=== PATIENT | male | born 1955 | race Caucasian/White ===

== ENCOUNTER 2018-06-12 19:36 | Inpatient (IN) | payer MEDICARE, MEDICAID ==
[2018-06-12] MEDS ORDERED: NORMAL SALINE 1000 ML 1,000 ML IV ONE (19:43)
--- NOTE | 2018-06-12 19:43 | ER Document Report ---
ED General - General TRAVEL OUTSIDE OF THE [place] IN LAST 30 DAYS: No <PHILIPP FULLER - Last Filed: 06/13/18 04:17> <BENI BOOKER - Last Filed: 06/13/18 04:28> - General Stated Complaint: UNRESPONSIVE Time Seen by Provider: 06/12/18 19:36 Notes: 63-year-old male who presents to the emergency department today unresponsive. EMS states that the family had picked the patient up from his house because they were taking him to a pulmonology appointment tomorrow to have a "spot on his lung" looked at. EMS states that the patient was sitting at the table eating and became unresponsive. He has a remote history of drug usage according to EMS. Patient received 4 mg of Narcan with no change in mental status. Family has now arrived and describes an episode where the patient attempted to get up from the table with his head shaking and a jerking motion in his right arm. Family states that the patient was not listening to them or responding to them during this episode. Family states the patient does have a history of EtOH abuse. (PHILIPP FULLER) - Related Data Allergies/Adverse Reactions: Sulfa (Sulfonamide Antibiotics) Allergy (Verified 05/28/16 15:48) Past Medical History - General Information source: Relative, [facility] Records - Social History Smoking Status: Current Every Day Smoker Cigarette use (# per day): Yes Frequency of alcohol use: Heavy Lives with: Family Family History: Reviewed & Not Pertinent, CAD, Hypertension - Past Medical History Cardiac Medical History: Reports: Hx Coronary Artery Disease, Hx DVT, Hx Hypercholesterolemia, Hx Hypertension, Hx Pulmonary Embolism Pulmonary Medical History: Reports: Hx COPD Endocrine Medical History: Reports: Hx Diabetes Mellitus Type 2 Psychiatric Medical History: Reports: Hx Depression Past Surgical History: Reports: Hx Abdominal Surgery - hernia, Hx Appendectomy, Hx Tonsillectomy - Immunizations Hx Diphtheria, Pertussis, Tetanus Vaccination: Yes <PHILIPP FULLER - Last Filed: 06/13/18 04:17> Review of Systems - Review of Systems -: Yes ROS unobtainable due to patient's medical condition <PHILIPP FULLER - Last Filed: 06/13/18 04:17> Physical Exam <PHILIPP FULLER - Last Filed: 06/13/18 04:17> <BENI BOOKER - Last Filed: 06/13/18 04:28> - Vital signs Vitals: Resp Pulse Ox 14 99 06/12/18 19:39 06/12/18 19:39 - Notes Notes: PHYSICAL EXAM GENERAL: Decreased level of responsiveness. HEAD: Normocephalic, atraumatic. EYES: Pupils equal, round, and reactive to light. ENT: Oral mucosa moist, tongue midline. NECK: Full range of motion. Supple. Trachea midline. LUNGS: Clear to auscultation bilaterally, no wheezes, rales, or rhonchi. Snoring respirations, NPA intact and causing gagging. HEART: Regular rate and rhythm. No murmurs, gallops, or rubs. ABDOMEN: Soft, non-tender. Non-distended. Bowel sounds present in all 4 quadrants. No guarding, rigidity, or rebound. EXTREMITIES: Occasional spontaneous movements. Withdraws from ABG. NEUROLOGICAL: GCS E3, V2, M6 = 11. Squeezes hands on command. SKIN: Thick hypertrophic nails across bilateral feet. The medial aspect of the right great toe is necrotic. Toenails are peeling up on both feet. Both feet are warm. There is a callus in the left foot over the tip of the left great toe which is not necrotic. (PHILIPP FULLER) Course - Laboratory Result Diagrams: 06/12/18 19:00 06/12/18 19:00 <PHILIPP FULLER - Last Filed: 06/13/18 04:17> - Laboratory Result Diagrams: 06/12/18 19:00 06/12/18 19:00 <BENI BOOKER - Last Filed: 06/13/18 04:28> - Re-evaluation Re-evalutation: 06/12/18 23:23 +CBC unremarkable, venous blood gas shows slightly low PO2 at 76.5, CO2 is mildly elevated at 28.3, he is not acidotic, there are no findings that would explain his altered mental status, CMP shows moderately elevated glucose at 212 , no other electrolyte abnormalities that would explain his altered mental status is indeterminate at 0.062, proBNP normal at 89, urinalysis shows glucose but no ketones or signs of infection, no signs of severe dehydration, urine drug screen is negative, salicylates and acetaminophen are undetectable, alcohol is undetectable. Chest x-ray shows no acute process, CT scan of the head shows no acute process. More history was obtained from the family and the history includes the fact that he had some efforts to stand and then shaking of his head and then he slumped down onto the table. They also include that he has had episodes of urinary and fecal incontinence on multiple occasions when at home with his home health aide. I am quite suspicious that the patient actually had a seizure and is now postictal. He has been rechecked several times, he is slowly awakening more and more every time I see him. I just rechecked him and he makes efforts to sit up and when she can and asked to wake up and talk to me he says I am awake but then immediately falls back asleep. Patient will be observed for another hour, if he is then able to wake up and walk he will be discharged to home under the care of his family with Keppra as an antiepileptic otherwise we will discussed observation overnight with the hospitalist. Family is in agreement with this plan. 06/13/18 03:39 Patient still quite confused, unable to answer my questions, makes efforts to sit up in bed but cannot hold himself up, after much encouragement he is still not able to sit up in bed. Not able to give himself a drink. Cardiac enzymes are trending downward. Lactic acid is still elevated. No other signs of sepsis. Discussed patient with Dr. Delacruz, agrees to place patient on his service in observation status. Continue to observe for clearing of mentation. 06/13/18 04:27 I do not suspect alcohol withdrawal as he is not tachycardic and he is not hypertensive and his mental status is improving. (BENI BOOKER) - Vital Signs Vital signs: Temp Pulse Resp BP Pulse Ox 78 19 131/82 H 94 06/12/18 19:42 06/13/18 04:01 06/13/18 04:01 06/13/18 04:01 - Laboratory Laboratory results interpreted by me: 06/12/18 06/12/18 06/12/18 19:00 19:39 20:05 ABG pO2 76.5 L ABG HCO3 27.0 H ABG Total CO2 28.3 H BUN 25 H Glucose 212 H POC Glucose 220 H Lactic Acid ALT 17 L Creatine Kinase 37 L Urine Glucose (UA) Salicylates < 1.0 L Acetaminophen < 10 L 06/12/18 06/12/18 06/13/18 20:05 20:50 00:05 ABG pO2 ABG HCO3 ABG Total CO2 BUN Glucose POC Glucose Lactic Acid 2.4 H 2.6 H ALT Creatine Kinase Urine Glucose (UA) >=500 H Salicylates Acetaminophen - EKG Interpretation by Me Additional EKG results interpreted by me: 06/12/18 23:25 EKG shows sinus rhythm at a rate of 79, no ST segment elevations or depressions , T wave inversions isolated to lead III, normal axis, prolonged QT interval, rapid R wave progression per my interpretation. (BENI BOOKER) Critical Care Note - Critical Care Note Total time excluding time spent on procedures (mins): 45 <BENI BOOKER - Last Filed: 06/13/18 04:28> Discharge <PHILIPP FULLER - Last Filed: 06/13/18 04:17> - Discharge Admitting Provider: [facility] Unit Admitted: Telemetry <BENI BOOKER - Last Filed: 06/13/18 04:28> - Discharge Clinical Impression: Altered mental status Qualifiers: Altered mental status type: coma Coma depth: [place] coma 9-12 Coma timing: in the field (EMT or ambulance) Qualified Code(s): R40.2421 - Hu coma scale score 9-12, in the field [EMT or ambulance] Condition: Good Disposition: ADMITTED OBSERVATION Scribe Attestation: 06/13/18 04:28 I personally performed the services described in the documentation, reviewed and edited the documentation which was dictated to the scribe in my presence, and it accurately records my words and actions. (BENI BOOKER)
[2018-06-12 20:01] LABS: ABSOLUTE BASOPHILS # (AUTO) 0.1 10^3/uL (0.0-0.2); ABSOLUTE EOSINOPHILS # (AUTO) 0.3 10^3/uL (0.0-0.6); ABSOLUTE LYMPHOCYTES (AUTO) 2.1 10^3/uL (0.5-4.7); ABSOLUTE MONOCYTES (AUTO) 0.7 10^3/uL (0.1-1.4); ABSOLUTE NEUT (AUTO) 3.7 10^3/uL (1.7-8.2); BASOPHILS % (AUTO) 1.4 % (0-2); EOSINOPHILS % (AUTO) 4.3 % (0-6); HEMATOCRIT 44.9 % (37.9-51.0); HEMOGLOBIN 15.4 g/dL (13.5-17.0); LYMPHOCYTES % (AUTO) 30.5 % (13-45); MEAN CORPUSCULAR HEMOGLOBIN 31.2 pg (27.0-33.4); MEAN CORPUSCULAR HGB CONC 34.4 g/dL (32.0-36.0); MEAN CORPUSCULAR VOLUME 91 fl (80-97); MONOCYTES % (AUTO) 10.7 % (3-13); PLATELET COUNT 263 10^3/uL (150-450); RED BLOOD COUNT 4.96 10^6/uL (4.35-5.55); RED CELL DISTRIBUTION WIDTH 13.5 % (11.5-14.0); SEGMENTED NEUTROPHILS % (AUTO) 53.1 % (42-78); TOTAL CELLS COUNTED % (AUTO) 100 %
[2018-06-12 20:25] LABS: ARTERIAL BLOOD BASE EXCESS 2.1 mmol/L; ARTERIAL BLOOD O2 SATURATION 95.4 % (94-98); ARTERIAL BLOOD PCO2 43.1 mmHg (35-45); ARTERIAL BLOOD PH 7.42 (7.35-7.45); ARTERIAL BLOOD PO2 76.5 mmHg (80-100); ARTERIAL BLOOD TOTAL CO2 28.3 mmol/L (23-27)
[2018-06-12 20:27] LABS: ARTERIAL BLOOD FIO2 2L
[2018-06-12 20:41] LABS: APPEARANCE,URINE CLEAR; BILIRUBIN,URINE NEGATIVE (NEGATIVE); COLOR,URINE YELLOW; GLUCOSE, URINE >=500 mg/dL (NEGATIVE); KETONES,URINE NEGATIVE (NEGATIVE); LEUKOCYTE ESTERASE,URINE NEGATIVE (NEGATIVE); NITRITE,URINE NEGATIVE (NEGATIVE); PROTEIN,URINE NEGATIVE (NEGATIVE); URINE SPECIFIC GRAVITY 1.022; UROBILINOGEN,URINE NEGATIVE mg/dL (<2.0)
[2018-06-12 20:43] LABS: CREATINE KINASE MB 0.8 ng/mL (<4.55)
[2018-06-12 20:55] LABS: URINE AMPHETAMINES SCREEN NEGATIVE; URINE BARBITURATES SCREEN NEGATIVE; URINE BENZODIAZEPINES SCREEN NEGATIVE; URINE COCAINE SCREEN NEGATIVE; URINE MARIJUANA (THC) SCREEN NEGATIVE; URINE METHADONE SCREEN NEGATIVE; URINE PHENCYCLIDINE SCREEN NEGATIVE
--- NOTE | 2018-06-12 21:00 | RADIOLOGY REPORT (SQ) ---
EXAM DESCRIPTION: XR CHEST 1 VIEW COMPLETED DATE/TME: 06/12/2018 19:41 CLINICAL HISTORY: 63 years, Male, ams Findings: Heart is mildly enlarged. Aorta is within normal limits. No consolidation or pleural effusion. No pulmonary edema or pneumothorax. IMPRESSION: No acute disease.
[2018-06-12 21:07] LABS: ALANINE AMINOTRANSFERASE 17 U/L (21-72); ALBUMIN 3.8 g/dL (3.5-5.0); ALKALINE PHOSPHATASE 73 U/L (38-126); ANION GAP 13 (5-19); ASPARTATE AMINO TRANSFERASE 46 U/L (17-59); BILIRUBIN,DIRECT 0.3 mg/dL (0.0-0.4); BILIRUBIN,TOTAL 0.3 mg/dL (0.2-1.3); BLOOD UREA NITROGEN 25 mg/dL (7-20); CALCIUM 9.5 mg/dL (8.4-10.2); CARBON DIOXIDE 25 mmol/L (22-30); CHLORIDE 101 mmol/L (98-107); CREATINE KINASE 37 U/L (55-170); GLUCOSE 212 mg/dL (75-110); SODIUM 139.4 mmol/L (137-145)
[2018-06-12 21:10] LABS: TROPONIN I 0.062 ng/mL
[2018-06-12 21:12] LABS: ACETAMINOPHEN < 10 ug/mL (10-30); ALCOHOL < 10 mg/dL (NONE DETECTED); SALICYLATE < 1.0 mg/dL (2.0-20.0)
--- NOTE | 2018-06-12 23:05 | RADIOLOGY REPORT (SQ) ---
EXAM DESCRIPTION: CT HEAD WITHOUT IV CONTRAST COMPLETED DATE/TME: 06/12/2018 20:46 CLINICAL HISTORY: 63 years, Male, decreased LOC This exam was performed according to our departmental dose-optimization program which includes automated exposure control, adjustment of the mA and/or kVp according to patient size and/or use of iterative reconstruction technique where applicable. FINDINGS: No acute intracranial hemorrhage, mass effect or midline shift. No extra-axial fluid collections. Ventricles and subarachnoid spaces are mildly dilated consistent with cerebral atrophy. Mild patchy hypodense areas in periventricular white matter of both cerebral hemispheres consistent with chronic small vessel ischemic changes. Visualized paranasal sinuses demonstrates mild fluid and mucosal thickening in the sphenoid sinuses. Mastoid air cells are clear. The skull is intact. IMPRESSION: No acute intracranial hemorrhage.
[2018-06-13] MEDS ORDERED: MAGNESIUM HYDROXIDE SUSP 30 ML UDCUP PO PRN (04:08)
[2018-06-13] MEDS ORDERED: MAG HYDROX/AL HYDROX/SIMETH SUSP 30 ML UDCUP PO PRN (04:08)
[2018-06-13] MEDS ORDERED: ONDANSETRON HCL INJ/PF 4 MG/2 ML SDV IV PRN (04:08)
[2018-06-13] MEDS ORDERED: ONDANSETRON 4 MG TAB.RAPDIS PO PRN (04:08)
[2018-06-13] MEDS ORDERED: DEXTROSE 40% GEL 15 GM TUBE PO PRN ×4 (04:20→04:23)
[2018-06-13] MEDS ORDERED: GLUCAGON,HUMAN RECOMB 1 MG INJ IM PRN ×2 (04:20→04:23)
[2018-06-13] MEDS ORDERED: DEXTROSE 50%-WATER 25 GM/50 ML DISP.SYRIN IV PRN ×4 (04:20→04:23)
[2018-06-13] MEDS ORDERED: POTASSI CL 20 MEQ/1/2NS 1L 20 MEQ/1,000 ML RTUINJ IV PRN (04:22)
[2018-06-13] MEDS ORDERED: ACETAMINOPHEN 650 MG SUPP.RECT PR PRN (04:29)
--- NOTE | 2018-06-13 06:36 | PDOC H&P ---
History of Present Illness Admission Date/PCP: 06/13/18 03:55 Patient complains of: unresponsiveness History of Present Illness: RITU ALLEN is a 63 year old male who presented to the emergency room via EMS. His family members relate that they had picked the patient up at his home and brought him to their home to facilitate their ability to take him to a pulmonology appointment scheduled later today. However they found him slumped forward while sitting at the table where he had apparently been eating. His head was down on the table and was also noted to be shaking and his right arm was extended out over the table and it was jerking. The patient was not responsive to their attempts to arouse him or assist him and this created great concern for them for which they called the EMS. Since the time of his unusual behavior he has not been responsive though he can be aroused minimally he is unable to communicate other than for the most brief of questions as he returns to his somnolent stupor before a question can be reasonably posed. He does say no when asked if he has any pain however this is the extent of information that was able to be gleaned from the patient himself. The family states that he has been found by his homemaker sitting in his recliner having lost control of his bladder or bowels on occasions. Generally he is good about getting up and going to the bathroom and his homemaker found this to be somewhat puzzling but had also noted that he was sleeping very soundly when she would find him in such a condition and she would not be able to wake him to get him to clean himself up. The family indicates that the patient has no history of seizure disorder to the best of their knowledge. In the emergency room the patient was found to be arousable but stuporous on exam. His laboratory workup was essentially unremarkable with the exception of a mildly elevated lactic acid level and hyperglycemia in the 200s. His brain CT scan was unremarkable for any acute process. Because of these findings it was felt that the patient was most likely post ictal and he is being admitted to observation status for ongoing evaluation and initiation of anticonvulsant therapy. Past Medical History Past Medical History: Patient is unable to provide any past history however his family does provide some history and other parts of the history are obtained from prior records. Cardiac Medical History: Reports: Coronary Artery Disease, DVT, Hyperlipidema, Hypertension, Pulmonary Embolism Pulmonary Medical History: Reports: Chronic Obstructive Pulmonary Disease (COPD) Denies: Tuberculosis EENT Medical History: Reports: None Neurological Medical History: Denies: Hemorrhagic CVA, Ischemic CVA, Seizures Endocrine Medical History: Reports: Diabetes Mellitus Type 2 Denies: Diabetes Mellitus Type 1, Hyperthyroidism, Hypothyroidism Renal/ Medical History: Denies: Chronic Kidney Disease, Nephrolithiasis Malignancy Medical History: Reports: None GI Medical History: Denies: Cirrhosis, Hepatitis Musculoskeltal Medical History: Denies: Arthritis, Gout Skin Medical History: Denies: Eczema, Psoriasis Psychiatric Medical History: Reports: Depression Denies: Alcohol Dependency, Substance Abuse Traumatic Medical History: Reports: None Hematology: Denies: Anemia, Bleeding Tendencies Infectious Medical History: Reports: None Past Surgical History Past Surgical History: Reports: Appendectomy, Tonsillectomy Social History Information Source: Relative Lives with: Alone Smoking Status: Current Every Day Smoker Frequency of Alcohol Use: None Hx Recreational Drug Use: No Drugs: None Hx Prescription Drug Abuse: No - Advance Directive Resuscitation Status: Full Code Surrogate healthcare decision maker:: Conor Allen Family History Family History: CAD, Hypertension Parental Family History Reviewed: Yes Children Family History Reviewed: No Sibling(s) Family History Reviewed.: Yes Medication/Allergy Home Medications: Albuterol Sulfate [Ventolin Hfa] 2 puff IH PRN PRN 05/29/16 Carbamazepine 200 mg PO DAILY 05/29/16 Gabapentin 100 mg PO BID 05/29/16 Isosorbide Mononitrate [Isosorbide Mononitrate ER] 30 mg PO DAILY 05/29/16 Lisinopril 1 tab PO DAILY 05/29/16 Omeprazole 20 mg PO DAILY 05/29/16 Tamsulosin HCl [Flomax 0.4 mg Cap.sr] 0.4 mg PO DAILY 05/29/16 Warfarin Sodium 5 mg PO DAILY 05/29/16 Alprazolam [Xanax 0.5 mg Tablet] 0.5 mg PO BIDP PRN #10 tablet 05/30/16 Amlodipine Besylate 10 mg PO DAILY #30 tablet 05/30/16 Blood-Glucose Meter [Blood Glucose Meter] 1 unit MC DAILY PRN #1 unit 05/30/16 Enoxaparin Sodium [Lovenox Inj 100 mg/1 ml Disp.syrin] 95 mg SUBCUT Q12 #10 disp.syrin 05/30/16 Lisinopril [Prinivil 10 mg Tablet] 10 mg PO DAILY #30 tablet 05/30/16 Metformin HCl 500 mg PO DAILY #30 tablet 05/30/16 Metoprolol Succinate [Toprol XL 100 mg Tablet] 100 mg PO DAILY #30 tab.sr.24h Oxycodone HCl/Acetaminophen [Oxycodon-Acetaminophen 7.5-325] 1 each PO Q6 PRN # 20 tablet 05/30/16 Pioglitazone HCl 30 mg PO DAILY #30 tablet 05/30/16 Promethazine HCl 25 mg PO PRN PRN #10 tablet 05/30/16 Simvastatin 20 mg PO DAILY #30 tablet 05/30/16 Allergies/Adverse Reactions: Sulfa (Sulfonamide Antibiotics) Allergy (Verified 05/28/16 15:48) Review of Systems ROS unobtainable: Due to mental status - Patient is stuporous and somnolent and unable to respond to questions with meaningful input. Physical Exam Vital Signs: Temp Pulse Resp BP Pulse Ox 78 19 121/79 95 06/12/18 19:42 06/13/18 03:01 06/13/18 03:01 06/13/18 03:01 General appearance: PRESENT: no acute distress, other - Somnolent but arousable , stuporous when aroused. Head exam: PRESENT: atraumatic, normocephalic Eye exam: PRESENT: conjunctiva pink. ABSENT: scleral icterus Ear exam: PRESENT: normal external ear exam. ABSENT: bleeding, drainage Mouth exam: PRESENT: dry mucosa, neck supple Neck exam: ABSENT: JVD, thyromegaly, tracheal deviation Respiratory exam: PRESENT: clear to auscultation rubin, symmetrical, unlabored Cardiovascular exam: PRESENT: RRR. ABSENT: clicks, gallop, rubs Pulses: PRESENT: normal radial pulses, normal dorsalis pedis pul Vascular exam: PRESENT: normal capillary refill. ABSENT: pallor GI/Abdominal exam: PRESENT: normal bowel sounds, soft Rectal exam: PRESENT: deferred Extremities exam: ABSENT: joint swelling, pedal edema Musculoskeletal exam: ABSENT: deformity, dislocation Neurological exam: PRESENT: altered - Somnolent and stuporous when aroused., CN II-XII grossly intact Psychiatric exam: PRESENT: other - Unable to assess due to patient's somnolence and stupor Skin exam: PRESENT: dry, intact, warm. ABSENT: jaundice, rash, urticaria Results Impressions: Chest X-Ray 06/12/18 19:41 IMPRESSION: No acute disease. Head CT 06/12/18 20:46 IMPRESSION: No acute intracranial hemorrhage. Assessment & Plan - Diagnosis (1) Altered mental status Qualifiers: Altered mental status type: coma Coma depth: [place] coma 9-12 Coma timing: in the field (EMT or ambulance) Qualified Code(s): R40.2421 - [place] coma scale score 9-12, in the field [EMT or ambulance] Is this a current diagnosis for this admission?: Yes Plan: Patient will be admitted to observation status for ongoing evaluation of his altered mental status with somnolence stupor. This is most likely post ictal in nature and is expected to resolve over the next 6-12 hours. Supportive care will be provided in the meantime. (2) Hypertension Qualifiers: Hypertension type: essential hypertension Qualified Code(s): I10 - Essential (primary) hypertension Is this a current diagnosis for this admission?: Yes Plan: Patient will be continued on his current antihypertensive regimen when he is awake and alert and able to resume taking oral medications. (3) Coronary artery disease Qualifiers: Coronary Disease-Associated Artery/Lesion type: unspecified vessel or lesion type [place] vs. transplanted heart: [place] heart Associated angina: angina presence unspecified Qualified Code(s): I25.10 - Atherosclerotic heart disease of [place] coronary artery without angina pectoris Is this a current diagnosis for this admission?: Yes Plan: Patient will be continued on his cardiac regimen as soon as he is awake and alert enough to tolerate oral medications. (4) Szf-llukisu-lukafiszp diabetes mellitus without complications Qualifiers: Diabetes mellitus or first assist registered nurse insulin use: without or first assist registered nurse use Qualified Code(s): E11.9 - Type 2 diabetes mellitus without complications Is this a current diagnosis for this admission?: Yes Plan: Patient will be returned to his usual diabetic therapeutic regiment as soon as he is awake and alert. (5) History of pulmonary embolism Is this a current diagnosis for this admission?: Yes Plan: Patient will be continued on his twice daily dosing of Lovenox at 1 mg/kg per dose. - Time Time Spent: 30 to 50 Minutes Critical Time spent with patient: Less than 15 minutes Medications reviewed and adjusted accordingly: Yes - Inpatient Certification Based on my medical assessment, after consideration of the patient's comorbidities, presenting symptoms, or acuity I expect that the services needed warrant INPATIENT care.: No I certify that my determination is in accordance with my understanding of Medicare's requirements for reasonable and necessary INPATIENT services [42 CFR 412.3e].: No
[2018-06-13 07:04] LABS: ANION GAP 8 (5-19); BLOOD UREA NITROGEN 23 mg/dL (7-20); CALCIUM 8.9 mg/dL (8.4-10.2); CARBON DIOXIDE 25 mmol/L (22-30); CHLORIDE 107 mmol/L (98-107); CREATINE KINASE 28 U/L (55-170); GLUCOSE 206 mg/dL (75-110); POTASSIUM 4.3 mmol/L (3.6-5.0); SODIUM 140.1 mmol/L (137-145)
[2018-06-13 07:12] LABS: CREATINE KINASE MB 0.53 ng/mL (<4.55); TROPONIN I 0.056 ng/mL
[2018-06-13 07:36] LABS: THYROID STIMULATING HORMONE 0.68 uIU/mL (0.47-4.68)
[2018-06-13 07:38] LABS: FREE T3 2.73 pg/mL (2.77-5.27); FREE T4 (FREE THYROXINE) 0.8 ng/dL (0.78-2.19)
[2018-06-13] MEDS: BUDESONIDE NEB 0.5 MG/2 ML AMPUL NEB SCH ×2 (09:05→19:53)
--- NOTE | 2018-06-13 10:00 | EKG REPORT ---
SEVERITY:- ABNORMAL ECG - SINUS RHYTHM INFERIOR INFARCT, OLD BORDERLINE PROLONGED QT INTERVAL : Confirmed by: Josephine Mariscal MD 13-Jun-2018 09:59:47
[2018-06-13] MEDS: ENOXAPARIN SODIUM INJ 100 MG/1 ML DISP.SYRIN SUBCUT SCH ×2 (12:34→22:02)
[2018-06-13] MEDS: DOCUSATE SODIUM 100 MG CAPSULE PO SCH ×2 (12:35→17:14)
[2018-06-13] MEDS: TAMSULOSIN HCL 0.4 MG CAP.SR.24H PO SCH (12:35)
[2018-06-13] MEDS: METOPROLOL SUCCINATE 50 MG TAB.SR.24H PO SCH (12:35)
[2018-06-13] MEDS: AMLODIPINE BESYLATE 10 MG TABLET PO SCH (12:35)
[2018-06-13] MEDS: FAMOTIDINE 20 MG TABLET PO SCH ×2 (12:35→22:03)
[2018-06-13] MEDS: ISOSORBIDE MONONITRATE 30 MG TAB.ER.24H PO SCH (12:36)
[2018-06-13] MEDS: LISINOPRIL 10 MG TABLET PO SCH (12:36)
[2018-06-13] MEDS: 1/2 NORMAL SALINE 1,000 ML IV PRN (13:04)
[2018-06-13] MEDS: LEVETIRACETAM 500 MG TABLET PO SCH ×2 (13:05→22:03)
[2018-06-13] MEDS: INSULIN LISPRO 100 UNIT/ML 3 ML VIAL SUBCUT PRN ×2 (13:33→18:33)
[2018-06-13 16:46] LABS: CREATINE KINASE MB 0.5 ng/mL (<4.55); TROPONIN I 0.057 ng/mL
[2018-06-13] MEDS: ALBUTEROL SULFATE 0.083% NEB 2.5 MG/3 ML AMPUL NEB PRN (19:56)
[2018-06-13] MEDS: SIMVASTATIN 10 MG TABLET PO SCH (22:03)
[2018-06-13 22:19] LABS: CREATINE KINASE MB 0.32 ng/mL (<4.55); TROPONIN I 0.055 ng/mL
[2018-06-14] MEDS: 1/2 NORMAL SALINE 1,000 ML IV PRN ×2 (00:14→08:18)
[2018-06-14 05:29] LABS: ABSOLUTE BASOPHILS # (AUTO) 0.1 10^3/uL (0.0-0.2); ABSOLUTE EOSINOPHILS # (AUTO) 0.3 10^3/uL (0.0-0.6); ABSOLUTE LYMPHOCYTES (AUTO) 2.2 10^3/uL (0.5-4.7); ABSOLUTE MONOCYTES (AUTO) 0.6 10^3/uL (0.1-1.4); ABSOLUTE NEUT (AUTO) 4.8 10^3/uL (1.7-8.2); BASOPHILS % (AUTO) 0.8 % (0-2); EOSINOPHILS % (AUTO) 3.4 % (0-6); HEMOGLOBIN 14.8 g/dL (13.5-17.0); LYMPHOCYTES % (AUTO) 27.8 % (13-45); MEAN CORPUSCULAR HEMOGLOBIN 31.4 pg (27.0-33.4); MEAN CORPUSCULAR HGB CONC 34.4 g/dL (32.0-36.0); MEAN CORPUSCULAR VOLUME 91 fl (80-97); MONOCYTES % (AUTO) 8.1 % (3-13); PLATELET COUNT 217 10^3/uL (150-450); RED BLOOD COUNT 4.72 10^6/uL (4.35-5.55); RED CELL DISTRIBUTION WIDTH 13.5 % (11.5-14.0); SEGMENTED NEUTROPHILS % (AUTO) 59.9 % (42-78); TOTAL CELLS COUNTED % (AUTO) 100 %
[2018-06-14] MEDS: BUDESONIDE NEB 0.5 MG/2 ML AMPUL NEB SCH ×2 (07:55→21:10)
[2018-06-14] MEDS: ALBUTEROL SULFATE 0.083% NEB 2.5 MG/3 ML AMPUL NEB PRN ×2 (07:55→21:10)
[2018-06-14] MEDS: LISINOPRIL 10 MG TABLET PO SCH (10:54)
[2018-06-14] MEDS: FAMOTIDINE 20 MG TABLET PO SCH ×2 (10:59→21:57)
[2018-06-14] MEDS: METOPROLOL SUCCINATE 50 MG TAB.SR.24H PO SCH (10:59)
[2018-06-14] MEDS: ISOSORBIDE MONONITRATE 30 MG TAB.ER.24H PO SCH (10:59)
[2018-06-14] MEDS: TAMSULOSIN HCL 0.4 MG CAP.SR.24H PO SCH (10:59)
[2018-06-14] MEDS: DOCUSATE SODIUM 100 MG CAPSULE PO SCH ×2 (10:59→18:10)
[2018-06-14] MEDS: AMLODIPINE BESYLATE 10 MG TABLET PO SCH (10:59)
[2018-06-14] MEDS: ENOXAPARIN SODIUM INJ 100 MG/1 ML DISP.SYRIN SUBCUT SCH (11:00)
[2018-06-14] MEDS: LEVETIRACETAM 500 MG TABLET PO SCH ×2 (11:00→21:57)
[2018-06-14] MEDS: ACETAMINOPHEN 325 MG TABLET PO PRN ×2 (11:01→18:14)
[2018-06-14] MEDS ORDERED: ALBUTEROL SULFATE HFA (90 MCG/PUFF) 200 PUFF/8.5 GM MDI IH PRN (11:26)
[2018-06-14] MEDS ORDERED: FOLIC ACID INJ 5 MG/1 ML 10 ML VIAL IV SCH (11:45)
--- NOTE | 2018-06-14 12:04 | PDOC PROGRESS REPORT ---
Subjective Progress Note for:: 06/14/18 Subjective:: Patient was seen and examined today. This awake but confused and confabulates. He is disoriented. RN tells me that family reported significant alcohol abuse. He has not had seizures so far in the hospital. Reason For Visit: DECREASED RESPONSIVENESS, POSSIBLE POSTICTAL Physical Exam Vital Signs: Temp Pulse Resp BP Pulse Ox 97.6 F 60 16 112/71 97 06/14/18 09:04 06/14/18 09:04 06/14/18 09:04 06/14/18 09:04 06/14/18 09:04 Intake & Output 06/13/18 06/14/18 06/15/18 06:59 06:59 06:59 Intake Total 2180 Output Total 1450 Balance 730 Weight 210 lb 15.718 oz General appearance: PRESENT: no acute distress Head exam: PRESENT: atraumatic, normocephalic Eye exam: ABSENT: conjunctival injection Mouth exam: PRESENT: moist, neck supple Neck exam: ABSENT: meningismus, tenderness, tracheostomy Respiratory exam: PRESENT: clear to auscultation rubin. ABSENT: accessory muscle use Cardiovascular exam: PRESENT: RRR. ABSENT: diastolic murmur Pulses: PRESENT: normal carotid pulses GI/Abdominal exam: PRESENT: normal bowel sounds, soft. ABSENT: ascites Rectal exam: PRESENT: deferred Neurological exam: PRESENT: awake. ABSENT: oriented to person, oriented to place Psychiatric exam: PRESENT: anxious Results Laboratory Results: 06/14/18 04:24 06/13/18 06:33 06/14/18 06/14/18 04:24 04:24 WBC 8.0 RBC 4.72 Hgb 14.8 Hct 43.0 MCV 91 MCH 31.4 MCHC 34.4 RDW 13.5 Plt Count 217 Seg Neutrophils % 59.9 Lymphocytes % 27.8 Monocytes % 8.1 Eosinophils % 3.4 Basophils % 0.8 Absolute Neutrophils 4.8 Absolute Lymphocytes 2.2 Absolute Monocytes 0.6 Absolute Eosinophils 0.3 Absolute Basophils 0.1 Magnesium 1.6 06/13/18 06/13/18 06/13/18 06:33 06:33 15:28 Creatine Kinase 28 L 27 L CK-MB (CK-2) 0.53 Troponin I 0.056 NT-Pro-B Natriuret Pep 80 06/13/18 06/13/18 06/13/18 15:28 21:30 21:30 Creatine Kinase 21 L CK-MB (CK-2) 0.50 0.32 Troponin I 0.057 0.055 NT-Pro-B Natriuret Pep Impressions: Chest X-Ray 06/12/18 19:41 IMPRESSION: No acute disease. Head CT 06/12/18 20:46 IMPRESSION: No acute intracranial hemorrhage. Assessment & Plan - Diagnosis (1) Altered mental status Qualifiers: Altered mental status type: coma Coma depth: [place] coma 9-12 Coma timing: in the field (EMT or ambulance) Qualified Code(s): R40.2421 - [place] coma scale score 9-12, in the field [EMT or ambulance] Is this a current diagnosis for this admission?: Yes Plan: Patient thought to be post ictal. He is started on Keppra per admitting physician. CT scan unremarkable. Will get an MRI of the brain. Family reports to RN significant history of alcohol abuse. Will start empiric thiamine supplements. Patient may need lumbar puncture. (2) History of pulmonary embolism Is this a current diagnosis for this admission?: Yes Plan: He is not on any anticoagulants for 2 years per family and verified by his pharmacy per RN. (3) Hypertension Qualifiers: Hypertension type: essential hypertension Qualified Code(s): I10 - Essential (primary) hypertension Is this a current diagnosis for this admission?: Yes Plan: Continue his home medications and monitor blood pressure. (4) Kyf-ayzlyuv-sdvdzelch diabetes mellitus without complications Qualifiers: Diabetes mellitus nursing home insulin use: without nursing home use Qualified Code(s): E11.9 - Type 2 diabetes mellitus without complications Is this a current diagnosis for this admission?: Yes Plan: Continue his home medications and monitor glucose levels. (5) Obesity (BMI 30.0-34.9) Is this a current diagnosis for this admission?: Yes
[2018-06-14] MEDS ORDERED: THIAMINE HCL 500 MG in NORMAL SALINE 250 ML IV SCH ×2 (13:00→14:00)
[2018-06-14] MEDS: INSULIN LISPRO 100 UNIT/ML 3 ML VIAL SUBCUT PRN ×2 (13:07→18:57)
[2018-06-14] MEDS: FOLIC ACID 1 MG in NORMAL SALINE 50 ML IV SCH (13:07)
[2018-06-14] MEDS: THIAMINE HCL 500 MG in NORMAL SALINE 250 ML IV SCH ×2 (14:33→21:57)
--- NOTE | 2018-06-14 16:30 | RADIOLOGY REPORT (SQ) ---
EXAM DESCRIPTION: MRI HEAD COMBO COMPLETED DATE/TIME: 06/14/2018 4:13 pm REASON FOR STUDY: encephalopathy R41.82 ALTERED MENTAL STATUS, UNSPECIFIED E08.65 DIABETES DUE TO UNDERLYING CONDITION W HYPERGLYCEMIA COMPARISON: CT 06/12/2018 TECHNIQUE: Multiplanar imaging includes noncontrasted T1, T2, FLAIR, Diffusion with ADC map and post gadolinium contrast T1 sequences. Images stored on PACS. CONTRAST TYPE AND DOSE: mL RENAL FUNCTION: GFR > 60. LIMITATIONS: None. FINDINGS: ANATOMY: No anomalies. Normal vascular flow voids. Pituitary fossa normal. CSF SPACES: Mild atrophy -induced prominence of CSF spaces and ventricles. CEREBRUM: High-signal intensity lesions scattered throughout the white matter on FLAIR imaging with d istribution suggesting chronic micro-vascular ischemic change. No evidence of hemorrhage, mass, extra axial fluid collection or acute ischemic change. No enhancing lesions. POSTERIOR FOSSA: Small infarcts in the cerebellar hemispheres. Evidence of small vessel disease in t he upper brain stem. IAC's unremarkable. Mild right mastoid fluid. ORBITS: No masses. Globes normal. PARANASAL SINUSES: Mucosal thickening in the left maxillary sinus. Fairly extensive scratch at exten sive mucosal thickening throughout the sphenoid sinus. DIFFUSION: Normal. No evidence of recent infarct. OTHER: No other significant finding. IMPRESSION: 1. Chronic atrophy, small vessel disease as above. 2. Fairly extensive paranasal sinus disease. This looks relatively chronic. 3. No recent CVA. No acute intracranial abnormality. EVIDENCE OF ACUTE STROKE: NO. TECHNICAL DOCUMENTATION: JOB ID: [id number] [employer]- All Rights Reserved Reading location - IP/workstation name: [email or web address]
[2018-06-14] MEDS: METFORMIN HCL 500 MG TABLET PO SCH (16:48)
[2018-06-14] MEDS: GLIPIZIDE 5 MG TABLET PO SCH (18:11)
[2018-06-14] MEDS: SIMVASTATIN 10 MG TABLET PO SCH (21:57)
[2018-06-15] MEDS: 1/2 NORMAL SALINE 1,000 ML IV PRN ×3 (00:47→22:36)
[2018-06-15 05:15] LABS: HEMOGLOBIN 13.5 g/dL (13.5-17.0); MEAN CORPUSCULAR HEMOGLOBIN 30.7 pg (27.0-33.4); MEAN CORPUSCULAR HGB CONC 33.8 g/dL (32.0-36.0); MEAN CORPUSCULAR VOLUME 91 fl (80-97); PLATELET COUNT 177 10^3/uL (150-450); RED CELL DISTRIBUTION WIDTH 13.8 % (11.5-14.0); WHITE BLOOD COUNT 7.4 10^3/uL (4.0-10.5)
[2018-06-15] MEDS: THIAMINE HCL 500 MG in NORMAL SALINE 250 ML IV SCH ×3 (05:39→21:12)
[2018-06-15] MEDS: METFORMIN HCL 500 MG TABLET PO SCH ×2 (07:58→16:08)
[2018-06-15] MEDS: BUDESONIDE NEB 0.5 MG/2 ML AMPUL NEB SCH ×2 (08:16→19:20)
[2018-06-15] MEDS: ALBUTEROL SULFATE 0.083% NEB 2.5 MG/3 ML AMPUL NEB PRN ×2 (08:16→19:20)
[2018-06-15 09:43] LABS: ANION GAP 6 (5-19); BLOOD UREA NITROGEN 18 mg/dL (7-20); CALCIUM 8.9 mg/dL (8.4-10.2); CARBON DIOXIDE 22 mmol/L (22-30); CHLORIDE 110 mmol/L (98-107); GLUCOSE 148 mg/dL (75-110); PHOSPHORUS 4.2 mg/dL (2.5-4.5); POTASSIUM 4.3 mmol/L (3.6-5.0); SODIUM 138.1 mmol/L (137-145)
[2018-06-15] MEDS ORDERED: (PENDING PHARMACY ID) (Umeclidinium Brm/Vilanterol Tr [Anoro Ellipta 62.5-25 Mcg Inh] 1 PU IH SCH (10:00)
[2018-06-15] MEDS ORDERED: AMLODIPINE BESYLATE 5 MG TABLET PO SCH (10:00)
[2018-06-15] MEDS: DOCUSATE SODIUM 100 MG CAPSULE PO SCH ×2 (10:04→17:15)
[2018-06-15] MEDS: ASPIRIN 81 MG TABLET, CHEWABLE PO SCH (10:08)
[2018-06-15] MEDS: METOPROLOL SUCCINATE 50 MG TAB.SR.24H PO SCH (10:08)
[2018-06-15] MEDS: TAMSULOSIN HCL 0.4 MG CAP.SR.24H PO SCH (10:08)
[2018-06-15] MEDS: AMLODIPINE BESYLATE 10 MG TABLET PO SCH (10:09)
[2018-06-15] MEDS: GLIPIZIDE 5 MG TABLET PO SCH ×2 (10:09→17:57)
[2018-06-15] MEDS: FAMOTIDINE 20 MG TABLET PO SCH ×2 (10:09→21:12)
[2018-06-15] MEDS: LEVETIRACETAM 500 MG TABLET PO SCH ×2 (10:09→21:12)
[2018-06-15] MEDS: ISOSORBIDE MONONITRATE 30 MG TAB.ER.24H PO SCH (10:10)
[2018-06-15] MEDS: FOLIC ACID 1 MG in NORMAL SALINE 50 ML IV SCH (10:10)
[2018-06-15] MEDS: ACETAMINOPHEN 325 MG TABLET PO PRN ×2 (10:18→17:57)
--- NOTE | 2018-06-15 10:22 | PDOC PROGRESS REPORT ---
Subjective Progress Note for:: 06/15/18 Subjective:: Patient was seen and examined today. Patient is awake and alert. He is looking much better today. He he was disoriented to place, time and person could recall after I redirected him. He has not had seizures so far in the hospital. Reason For Visit: DECREASED RESPONSIVENESS, POSSIBLE POSTICTAL Physical Exam Vital Signs: Temp Pulse Resp BP Pulse Ox 97.7 F 62 16 140/85 H 98 06/15/18 08:11 06/15/18 08:11 06/15/18 08:11 06/15/18 08:11 06/15/18 08:11 Intake & Output 06/14/18 06/15/18 06/16/18 06:59 06:59 06:59 Intake Total 2180 4694.2 Output Total 1450 2400 Balance 730 2294.2 Weight 210 lb 15.718 oz 215 lb 13.321 oz Exam: General appearance: no acute distress Head exam: atraumatic, normocephalic Eye exam: no conjunctival injection Mouth exam: moist, neck supple Neck exam: no meningismus, tenderness, tracheostomy Respiratory exam: clear to auscultation rubin. no accessory muscle use Cardiovascular exam: RRR. no diastolic murmur Pulses: normal carotid pulses GI/Abdominal exam: normal bowel sounds, soft. no ascites Rectal exam: deferred Neurological exam: awake. oriented to person, oriented to place after re- orientation Psychiatric exam: not anxious Results Laboratory Results: 06/15/18 04:30 06/15/18 08:50 06/15/18 06/15/18 04:30 08:50 WBC 7.4 RBC 4.40 Hgb 13.5 Hct 40.0 MCV 91 MCH 30.7 MCHC 33.8 RDW 13.8 Plt Count 177 Sodium 138.1 Potassium 4.3 Chloride 110 H Carbon Dioxide 22 Anion Gap 6 BUN 18 Creatinine 0.74 Est GFR ( Amer) > 60 Est GFR (Non-Af Amer) > 60 Glucose 148 H Calcium 8.9 Phosphorus 4.2 Magnesium 1.4 L 06/13/18 06/13/18 06/13/18 06:33 06:33 15:28 Creatine Kinase 28 L 27 L CK-MB (CK-2) 0.53 Troponin I 0.056 NT-Pro-B Natriuret Pep 80 06/13/18 06/13/18 06/13/18 15:28 21:30 21:30 Creatine Kinase 21 L CK-MB (CK-2) 0.50 0.32 Troponin I 0.057 0.055 NT-Pro-B Natriuret Pep Impressions: Chest X-Ray 06/12/18 19:41 IMPRESSION: No acute disease. Head CT 06/12/18 20:46 IMPRESSION: No acute intracranial hemorrhage. Head MRI 06/14/18 00:00 IMPRESSION: 1. Chronic atrophy, small vessel disease as above. 2. Fairly extensive paranasal sinus disease. This looks relatively chronic. 3. No recent CVA. No acute intracranial abnormality. EVIDENCE OF ACUTE STROKE: NO. Assessment & Plan - Diagnosis (1) Altered mental status Qualifiers: Altered mental status type: coma Coma depth: [place] coma 9-12 Coma timing: in the field (EMT or ambulance) Qualified Code(s): R40.2421 - [place] coma scale score 9-12, in the field [EMT or ambulance] Is this a current diagnosis for this admission?: Yes Plan: Patient thought to be post ictal. He is started on Keppra per admitting physician. CT scan unremarkable. Chronic ischemic changes on MRI of the brain but no acute issues. Family reports to RN significant history of alcohol abuse. We started empiric thiamine supplements. He is improving. Patient may need lumbar puncture. (2) History of pulmonary embolism Is this a current diagnosis for this admission?: Yes Plan: He is not on any anticoagulants for 2 years per family and verified by his pharmacy per RN. (3) Hypertension Qualifiers: Hypertension type: essential hypertension Qualified Code(s): I10 - Essential (primary) hypertension Is this a current diagnosis for this admission?: Yes Plan: Continue his home medications and monitor blood pressure. (4) Ymf-yhbjnnc-wlpkwhmdw diabetes mellitus without complications Qualifiers: Diabetes mellitus long term care phlebotomist insulin use: without long term care phlebotomist use Qualified Code(s): E11.9 - Type 2 diabetes mellitus without complications Is this a current diagnosis for this admission?: Yes Plan: Continue his home medications and monitor glucose levels. His A1c is 9.4 (5) Obesity (BMI 30.0-34.9) Is this a current diagnosis for this admission?: Yes - Plan Summary Plan Summary: Ambulate with physical therapy and occupational therapy. Continue aggressive thiamine supplements for the next 2 days minimum.
[2018-06-15] MEDS: INSULIN LISPRO 100 UNIT/ML 3 ML VIAL SUBCUT PRN ×2 (11:54→18:00)
[2018-06-15] MEDS: SIMVASTATIN 10 MG TABLET PO SCH (21:12)
[2018-06-15] MEDS: KETOROLAC TROMETHAMINE INJ/PF 30 MG/1 ML SDV IV PRN (21:12)
[2018-06-16] MEDS: THIAMINE HCL 500 MG in NORMAL SALINE 250 ML IV SCH ×3 (05:13→23:48)
[2018-06-16] MEDS: BUDESONIDE NEB 0.5 MG/2 ML AMPUL NEB SCH ×2 (07:34→20:15)
[2018-06-16] MEDS: ALBUTEROL SULFATE 0.083% NEB 2.5 MG/3 ML AMPUL NEB PRN (07:34)
[2018-06-16] MEDS: METFORMIN HCL 500 MG TABLET PO SCH ×2 (08:23→18:12)
[2018-06-16] MEDS: ASPIRIN 81 MG TABLET, CHEWABLE PO SCH (09:16)
[2018-06-16] MEDS: AMLODIPINE BESYLATE 10 MG TABLET PO SCH (09:16)
[2018-06-16] MEDS: TAMSULOSIN HCL 0.4 MG CAP.SR.24H PO SCH (09:16)
[2018-06-16] MEDS: METOPROLOL SUCCINATE 50 MG TAB.SR.24H PO SCH (09:17)
[2018-06-16] MEDS: LEVETIRACETAM 500 MG TABLET PO SCH ×2 (09:17→23:39)
[2018-06-16] MEDS: ISOSORBIDE MONONITRATE 30 MG TAB.ER.24H PO SCH (09:17)
[2018-06-16] MEDS: GLIPIZIDE 5 MG TABLET PO SCH ×2 (09:17→18:14)
[2018-06-16] MEDS: DOCUSATE SODIUM 100 MG CAPSULE PO SCH ×2 (09:17→17:52)
[2018-06-16] MEDS: FOLIC ACID 1 MG in NORMAL SALINE 50 ML IV SCH (09:20)
[2018-06-16] MEDS: ACETAMINOPHEN 325 MG TABLET PO PRN (09:20)
[2018-06-16] MEDS: FAMOTIDINE 20 MG TABLET PO SCH ×2 (09:24→23:39)
--- NOTE | 2018-06-16 09:37 | EEG PRO FEE REPORT ---
EEG INTERPRETATION PATIENT NAME: RITU ALLEN ROOM#: [id number] ORDER#: [id number] DATE OF STUDY: 06/13/2018 : 1955 REFERRING MD: MARCIA GUERRERO M.D. MEDICATIONS: Colace, Lovenox, Pepcid, GlucaGen, insulin, Imdur, Keppra, Lisinopril, Toprol, Zofran, Simvastatin, Flomax, Tylenol, Maalox, Albuterol, Norvasc, Pulmicort History This is a 63 year old right handed man with a history of cardiac stents, hypertension, hypercholesterolemia, COPD, pulmonary embolism, type II Diabetes, anxiety, depression, chronic ear infection, hernia who has been sleeping and snoring with minimal response. This EEG was requested for altered mental status. EEG Interpretation This EEG was recorded in the mostly sleep state. There was reactivity to passive eye opening and closing. The background consisted of mostly theta with some alpha activity however the patient appeared to be asleep. Vertex waves and sleep spindles were seen in the midline head regions. Photic stimulation resulted in no significant changes. There were no epileptiform abnormalities. The EKG showed a regular rhythm. The radiology ct technologist noted snoring and episodes of apnea. EEG Impression This EEG is normal during sleep. Awake periods were not obtained. If further EEG during wakefulness is desired, repeat study may be considered. Snoring and apnea were noted. A sleep study may be considered. INTERPRETING PHYSICIAN: GUI MATT M.D. /: MTEFFT TT: [id number] ID: [id number] /: [id number] TD: [id number] JOB: [id number] cc:Melvin CROWE M.D. HASSAN ELHEWAN, M.D. > MTDD
--- NOTE | 2018-06-16 10:29 | PDOC PROGRESS REPORT ---
Subjective Progress Note for:: 06/16/18 Subjective:: Patient was seen and examined today. Patient is awake and alert. He has some slurred speech which has been there since admission. He still disoriented and confabulating. He has not had seizures so far in the hospital. Reason For Visit: DECREASED RESPONSIVENESS, POSSIBLE POSTICTAL Physical Exam Vital Signs: Temp Pulse Resp BP Pulse Ox 97.8 F 56 L 18 129/76 H 100 06/16/18 07:43 06/16/18 07:43 06/16/18 07:43 06/16/18 07:43 06/16/18 07:43 Intake & Output 06/15/18 06/16/18 06/17/18 06:59 06:59 06:59 Intake Total 4694.2 6644.2 Output Total 2400 3900 Balance 2294.2 2744.2 Weight 215 lb 13.321 oz 220 lb 14.451 oz Exam: General appearance: no acute distress Head exam: atraumatic, normocephalic Eye exam: no conjunctival injection Mouth exam: moist, neck supple Neck exam: no meningismus, tenderness, tracheostomy Respiratory exam: clear to auscultation rubin. no accessory muscle use Cardiovascular exam: RRR. no diastolic murmur Pulses: normal carotid pulses GI/Abdominal exam: normal bowel sounds, soft. no ascites Rectal exam: deferred Neurological exam: awake. oriented to person, oriented to place after re- orientation Psychiatric exam: not anxious Results Laboratory Results: 06/15/18 04:30 06/15/18 08:50 06/13/18 06/13/18 06/13/18 06:33 06:33 15:28 Creatine Kinase 28 L 27 L CK-MB (CK-2) 0.53 Troponin I 0.056 NT-Pro-B Natriuret Pep 80 06/13/18 06/13/18 06/13/18 15:28 21:30 21:30 Creatine Kinase 21 L CK-MB (CK-2) 0.50 0.32 Troponin I 0.057 0.055 NT-Pro-B Natriuret Pep Impressions: Chest X-Ray 06/12/18 19:41 IMPRESSION: No acute disease. Head CT 06/12/18 20:46 IMPRESSION: No acute intracranial hemorrhage. Head MRI 06/14/18 00:00 IMPRESSION: 1. Chronic atrophy, small vessel disease as above. 2. Fairly extensive paranasal sinus disease. This looks relatively chronic. 3. No recent CVA. No acute intracranial abnormality. EVIDENCE OF ACUTE STROKE: NO. Assessment & Plan - Diagnosis (1) Altered mental status Qualifiers: Altered mental status type: coma Coma depth: [place] coma 9-12 Coma timing: in the field (EMT or ambulance) Qualified Code(s): R40.2421 - [place] coma scale score 9-12, in the field [EMT or ambulance] Is this a current diagnosis for this admission?: Yes Plan: Patient thought to be post ictal. He was started on Keppra per admitting physician. CT scan unremarkable. Chronic ischemic changes on MRI of the brain but no acute issues. Family reports to RN significant history of alcohol abuse. We started empiric thiamine supplements. He is not much improved today. Patient may need lumbar puncture. (2) History of pulmonary embolism Is this a current diagnosis for this admission?: Yes Plan: He is not on any anticoagulants for 2 years per family and verified by his pharmacy per RN. (3) Hypertension Qualifiers: Hypertension type: essential hypertension Qualified Code(s): I10 - Essential (primary) hypertension Is this a current diagnosis for this admission?: Yes Plan: Continue his home medications and monitor blood pressure. (4) Vnn-lfbewmf-kictmlpxv diabetes mellitus without complications Qualifiers: Diabetes mellitus correction insulin use: without intermediate manager use Qualified Code(s): E11.9 - Type 2 diabetes mellitus without complications Is this a current diagnosis for this admission?: Yes Plan: Continue his home medications and monitor glucose levels. His A1c is 9.4 (5) Obesity (BMI 30.0-34.9) Is this a current diagnosis for this admission?: Yes - Plan Summary Plan Summary: Patient will likely need long-term placement. Korsakoff syndrome is highly suspected.
[2018-06-16] MEDS: 1/2 NORMAL SALINE 1,000 ML IV PRN (11:07)
[2018-06-16] MEDS ORDERED: CEFTRIAXONE 2 GM/D5W RTU 2 GM/50 ML RTUPB IV SCH (12:00)
[2018-06-16] MEDS: INSULIN LISPRO 100 UNIT/ML 3 ML VIAL SUBCUT PRN (12:23)
[2018-06-16] MEDS: CEFTRIAXONE SODIUM 2,000 MG in DEXTROSE 5%-WATER 100 ML IV SCH (12:24)
[2018-06-16] MEDS ORDERED: LIDOCAINE 1% INJ-PF (10 MG/ML) 30 ML SDV ONE ×2 (15:31→23:29)
--- NOTE | 2018-06-16 15:51 | Operative Report ---
Bedside Procedure - History of Present Illness History of Present Illness: RITU ALLEN is a 63 year old male who presented to the emergency room via EMS. His family members relate that they had picked the patient up at his home and brought him to their home to facilitate their ability to take him to a pulmonology appointment scheduled later today. However they found him slumped forward while sitting at the table where he had apparently been eating. His head was down on the table and was also noted to be shaking and his right arm was extended out over the table and it was jerking. The patient was not responsive to their attempts to arouse him or assist him and this created great concern for them for which they called the EMS. Since the time of his unusual behavior he has not been responsive though he can be aroused minimally he is unable to communicate other than for the most brief of questions as he returns to his somnolent stupor before a question can be reasonably posed. He does say no when asked if he has any pain however this is the extent of information that was able to be gleaned from the patient himself. The family states that he has been found by his homemaker sitting in his recliner having lost control of his bladder or bowels on occasions. Generally he is good about getting up and going to the bathroom and his homemaker found this to be somewhat puzzling but had also noted that he was sleeping very soundly when she would find him in such a condition and she would not be able to wake him to get him to clean himself up. The family indicates that the patient has no history of seizure disorder to the best of their knowledge. In the emergency room the patient was found to be arousable but stuporous on exam. His laboratory workup was essentially unremarkable with the exception of a mildly elevated lactic acid level and hyperglycemia in the 200s. His brain CT scan was unremarkable for any acute process. Because of these findings it was felt that the patient was most likely post ictal and he is being admitted to observation status for ongoing evaluation and initiation of anticonvulsant therapy. Indication for Procedure: encephalopathy Date: 06/16/18 Surgeon: MARCIA GUERRERO - Lumbar Puncture Lumbar puncture Time completed: 15:30 Consent obtained: Yes Lumbar puncture pre-procedure: Sterile PPE donned, Betadine prep applied Patient position: Lying Lumbar puncture location: L4-5 Anesthetic type: 1% Lidocaine mL's of anesthetic: 5 Amount/type of drainage: clear Number of attempts: 1 Complications: No Notes: 06/16/18 15:50 We obtained 12 cc of clear CSF.
--- NOTE | 2018-06-16 15:56 | Progress Note ---
Provider Note Provider Note: LP opening pressure 25
[2018-06-16 17:39] LABS: GLUCOSE,CSF 84 mg/dL (40-70); PROTEIN,CSF 62 mg/dL (12-60)
[2018-06-16] MEDS: KETOROLAC TROMETHAMINE INJ/PF 30 MG/1 ML SDV IV PRN (18:11)
[2018-06-16 18:17] LABS: APPEARANCE ALL TUBES CLEAR; COLOR ALL TUBES COLORLESS; CSF TUBE NUMBER 3
[2018-06-16 18:18] LABS: RED BLOOD CELL,CSF 1 /uL (0-10)
[2018-06-16 18:19] LABS: WHITE BLOOD CELL,CSF 1 /uL (0-5)
[2018-06-16] MEDS ORDERED: LIDOCAINE 1% INJ (10 MG/ML) 10 ML MDV INJ ONE (19:00)
[2018-06-16] MEDS ORDERED: LIDOCAINE 1% INJ-PF (10 MG/ML) 30 ML SDV INJ ONE (20:30)
[2018-06-16] MEDS: SIMVASTATIN 10 MG TABLET PO SCH (23:39)
[2018-06-17] MEDS: 1/2 NORMAL SALINE 1,000 ML IV PRN ×2 (02:55→11:02)
[2018-06-17] MEDS: THIAMINE HCL 500 MG in NORMAL SALINE 250 ML IV SCH ×3 (07:28→21:20)
[2018-06-17] MEDS: BUDESONIDE NEB 0.5 MG/2 ML AMPUL NEB SCH ×2 (07:53→20:17)
[2018-06-17] MEDS: ALBUTEROL SULFATE 0.083% NEB 2.5 MG/3 ML AMPUL NEB PRN (07:56)
[2018-06-17 08:13] LABS: HEMATOCRIT 42.1 % (37.9-51.0); HEMOGLOBIN 14.2 g/dL (13.5-17.0); MEAN CORPUSCULAR HEMOGLOBIN 30.5 pg (27.0-33.4); MEAN CORPUSCULAR HGB CONC 33.7 g/dL (32.0-36.0); MEAN CORPUSCULAR VOLUME 91 fl (80-97); RED BLOOD COUNT 4.65 10^6/uL (4.35-5.55); RED CELL DISTRIBUTION WIDTH 13.9 % (11.5-14.0); WHITE BLOOD COUNT 9.4 10^3/uL (4.0-10.5)
[2018-06-17 08:28] LABS: ANION GAP 7 (5-19); BLOOD UREA NITROGEN 17 mg/dL (7-20); CALCIUM 8.7 mg/dL (8.4-10.2); CARBON DIOXIDE 23 mmol/L (22-30); CHLORIDE 108 mmol/L (98-107); GLUCOSE 221 mg/dL (75-110); POTASSIUM 3.6 mmol/L (3.6-5.0); SODIUM 137.9 mmol/L (137-145)
[2018-06-17 08:37] LABS: PLATELET COUNT 184 10^3/uL (150-450)
[2018-06-17] MEDS: DOCUSATE SODIUM 100 MG CAPSULE PO SCH ×2 (09:03→17:37)
[2018-06-17] MEDS: TAMSULOSIN HCL 0.4 MG CAP.SR.24H PO SCH (09:03)
[2018-06-17] MEDS: METFORMIN HCL 500 MG TABLET PO SCH ×2 (09:03→17:37)
[2018-06-17] MEDS: ASPIRIN 81 MG TABLET, CHEWABLE PO SCH (09:03)
[2018-06-17] MEDS: FOLIC ACID 1 MG in NORMAL SALINE 50 ML IV SCH (09:03)
[2018-06-17] MEDS: GLIPIZIDE 5 MG TABLET PO SCH ×2 (09:04→17:37)
[2018-06-17] MEDS: ISOSORBIDE MONONITRATE 30 MG TAB.ER.24H PO SCH (09:04)
[2018-06-17] MEDS: METOPROLOL SUCCINATE 50 MG TAB.SR.24H PO SCH (09:04)
[2018-06-17] MEDS: AMLODIPINE BESYLATE 10 MG TABLET PO SCH (09:04)
[2018-06-17] MEDS: FAMOTIDINE 20 MG TABLET PO SCH (09:04)
[2018-06-17] MEDS: LEVETIRACETAM 500 MG TABLET PO SCH ×2 (09:04→21:19)
[2018-06-17] MEDS: KETOROLAC TROMETHAMINE INJ/PF 30 MG/1 ML SDV IV PRN ×2 (09:49→17:40)
[2018-06-17] MEDS: CEFTRIAXONE SODIUM 2,000 MG in DEXTROSE 5%-WATER 100 ML IV SCH (11:02)
[2018-06-17] MEDS: PANTOPRAZOLE SODIUM 40 MG VIAL IV SCH (13:56)
[2018-06-17] MEDS ORDERED: METOCLOPRAMIDE HCL ORAL SOLN 10 MG/10 ML UDCUP PO ONE (14:00)
[2018-06-17] MEDS ORDERED: MAG HYDROX/AL HYDROX/SIMETH SUSP 30 ML UDCUP PO ONE (14:00)
[2018-06-17] MEDS ORDERED: LIDOCAINE 2% VISCOUS SOLN 20 ML UDCUP PO ONE (14:00)
--- NOTE | 2018-06-17 18:33 | EKG REPORT ---
SEVERITY:- ABNORMAL ECG - SINUS RHYTHM PROBABLE INFERIOR INFARCT, AGE INDETERMINATE : Confirmed by: Toño Tsang MD 17-Jun-2018 18:33:18
--- NOTE | 2018-06-17 19:26 | PDOC PROGRESS REPORT ---
Subjective Progress Note for:: 06/17/18 Subjective:: This is a 63 yr old male with a past medical history of pulmonary embolism off anticoagulation, hypertension and zpg-bzhjmbq-aovshapxi diabetes mellitus who was initially admitted due to acute encephalopathy deemed to be secondary to seizure. Reports history of alcohol use. Patient was started on Keppra upon admission. He was also started on thiamine and folate. Upon encounter today, patient appears comfortable. He says he feels much better today. No recurrence of seizures since admission. Upon further probing, patient admits that he does drink 3 bottles of beer a day and drinks a quart of liquor 3 times a week. He says that he stopped drinking 2 days prior to admission. Patient is coherent and oriented to person and place but not to time. Reason For Visit: DECREASED RESPONSIVENESS, POSSIBLE POSTICTAL Physical Exam Vital Signs: Temp Pulse Resp BP Pulse Ox 98.1 F 66 18 140/77 H 98 06/17/18 16:00 06/17/18 16:00 06/17/18 16:00 06/17/18 16:00 06/17/18 16:00 Intake & Output 06/16/18 06/17/18 06/18/18 06:59 06:59 06:59 Intake Total 6644.2 3539.2 2513.2 Output Total 3900 4000 2325 Balance 2744.2 -460.8 188.2 Weight 220 lb 14.451 oz 221 lb 5.506 oz General appearance: PRESENT: no acute distress, well-developed, well-nourished Head exam: PRESENT: atraumatic, normocephalic Eye exam: PRESENT: conjunctiva pink, EOMI, PERRLA. ABSENT: scleral icterus Ear exam: PRESENT: normal external ear exam Neck exam: ABSENT: carotid bruit, JVD, lymphadenopathy, thyromegaly Respiratory exam: PRESENT: clear to auscultation rubin. ABSENT: rales, rhonchi, wheezes Cardiovascular exam: PRESENT: RRR. ABSENT: diastolic murmur, rubs, systolic murmur Pulses: PRESENT: normal dorsalis pedis pul GI/Abdominal exam: PRESENT: normal bowel sounds, soft. ABSENT: distended, guarding, mass, organolmegaly, rebound, tenderness Rectal exam: PRESENT: deferred Neurological exam: PRESENT: alert, awake, oriented to person, oriented to place, CN II-XII grossly intact. ABSENT: motor sensory deficit Results Laboratory Results: 06/17/18 07:19 06/17/18 07:19 06/17/18 06/17/18 07:19 07:19 WBC 9.4 RBC 4.65 Hgb 14.2 Hct 42.1 MCV 91 MCH 30.5 MCHC 33.7 RDW 13.9 Plt Count 184 Sodium 137.9 Potassium 3.6 Chloride 108 H Carbon Dioxide 23 Anion Gap 7 BUN 17 Creatinine 0.73 Est GFR ( Amer) > 60 Est GFR (Non-Af Amer) > 60 Glucose 221 H Calcium 8.7 06/13/18 06/13/18 06/13/18 06:33 06:33 15:28 Creatine Kinase 28 L 27 L CK-MB (CK-2) 0.53 Troponin I 0.056 NT-Pro-B Natriuret Pep 80 06/13/18 06/13/18 06/13/18 15:28 21:30 21:30 Creatine Kinase 21 L CK-MB (CK-2) 0.50 0.32 Troponin I 0.057 0.055 NT-Pro-B Natriuret Pep 06/17/18 13:42 Creatine Kinase CK-MB (CK-2) Troponin I 0.066 NT-Pro-B Natriuret Pep Impressions: Chest X-Ray 06/12/18 19:41 IMPRESSION: No acute disease. Head CT 06/12/18 20:46 IMPRESSION: No acute intracranial hemorrhage. Head MRI 06/14/18 00:00 IMPRESSION: 1. Chronic atrophy, small vessel disease as above. 2. Fairly e xtensive paranasal sinus disease. This looks relatively chronic. 3. No recent CVA. No acute intracranial abnormality. EVIDENCE OF ACUTE STROKE: NO. Assessment & Plan - Diagnosis (1) Altered mental status Qualifiers: Altered mental status type: coma Coma depth: [place] coma 9-12 Coma timing: in the field (EMT or ambulance) Qualified Code(s): R40.2421 - [place] coma scale score 9-12, in the field [EMT or ambulance] Is this a current diagnosis for this admission?: Yes Plan: Resolved. Likely postictal related. (2) Seizure Is this a current diagnosis for this admission?: Yes Plan: Possibly alcohol withdrawal seizure as patient does report this morning that he drinks 3 bottles of beer/day and a quart of liquor 3 times a week. - Time Time Spent with patient: 15-24 minutes
--- NOTE | 2018-06-17 20:02 | XCELERA REPORT ---
[address] [address] Transthoracic Echocardiogram Report Name: RITU ALLEN Age: 63 yrs Gender: Male : 1955 Patient Status: Inpatient Patient Location: [address] [place] [address] Study Date: 06/16/2018 03:03 PM Procedure: A two-dimensional transthoracic echocardiogram with color flow Doppler was performed. The study was technically difficult with many images being suboptimal in quality. Reason For Study: bacteremia History: bacteremia / Endocarditis. Ordering Physician: MARCIA GUERRERO Performed By: Arely Brannon Interpretation Summary No gross vegetations seen.Recomend SHAKIRA if clinical suspicion is high. The left ventricle is normal in size. There is normal left ventricular wall thickness. LV EF is > than 60% Left ventricular systolic function is normal. Doppler measurements suggest impaired left ventricular relaxation, which is associated with grade I/IV or mild diastolic dysfunction The left ventricular wall motion is normal. There is no thrombus. The right ventricle is not well visualized secondary to technical limitations Right atrium not well visualized secondary to technical limitations The left atrial size is normal. There is no evidence of mitral valve prolapse. There is no vegetation seen on the mitral valve. There is no mitral valve stenosis. There is no mitral regurgitation noted. There is no aortic valve stenosis There is no LVOT obstruction. No aortic regurgitation is present. There is no tricuspid stenosis. Unable to calculate RVSP due lack of TR jet. The pulmonic valve is not well visualized. There is no pericardial effusion. No gross vegetations seen.Recomend SHAKIRA if clinical suspicion is high. MMode/2D Measurements & Calculations RVDd: 3.4 cm LVIDd: 5.7 cm FS: 30.2 % Ao root diam: 2.9 cm IVSd: 0.88 cm LVIDs: 4.0 cm EDV(Teich): 160.4 ml Ao root area: 6.6 cm2 LVPWd: 0.89 cm ESV(Teich): 69.3 ml EF(Teich): 56.8 % Doppler Measurements & Calculations MV E max maria elena: MV dec slope: Ao V2 max: LV V1 max P.2 cm/sec 155.5 cm/sec 4.3 mmHg MV A max maria elena: 434.3 cm/sec2 Ao max PG: LV V1 max: 84.0 cm/sec MV dec time: 0.16 sec 9.7 mmHg 103.8 cm/sec MV E/A: 0.85 PA V2 max: 86.0 cm/sec PA max P.0 mmHg Left Ventricle The left ventricle is normal in size. There is normal left ventricular wall thickness. LV EF is > than 60%. Left ventricular systolic function is normal. Doppler measurements suggest impaired left ventricular relaxation, which is associated with grade I/IV or mild diastolic dysfunction. The left ventricular wall motion is normal. There is no thrombus. Right Ventricle The right ventricle is not well visualized secondary to technical limitations. Atria Right atrium not well visualized secondary to technical limitations. The left atrial size is normal. Mitral Valve There is no evidence of mitral valve prolapse. There is no vegetation seen on the mitral valve. There is no mitral valve stenosis. There is no mitral regurgitation noted. Aortic Valve There is no aortic valvular vegetation. There is no aortic valve stenosis. There is no LVOT obstruction. No aortic regurgitation is present. Tricuspid Valve There is no tricuspid stenosis. Unable to calculate RVSP due lack of TR jet. Pulmonic Valve The pulmonic valve is not well visualized. Great Vessels The aortic root is not well visualized but is probably normal size. Effusions There is no pericardial effusion. : MARCIA GUERRERO > Josephine Mariscal
[2018-06-17] MEDS: ACETAMINOPHEN 325 MG TABLET PO PRN (21:18)
[2018-06-17] MEDS: SIMVASTATIN 10 MG TABLET PO SCH (21:19)
[2018-06-18] MEDS: KETOROLAC TROMETHAMINE INJ/PF 30 MG/1 ML SDV IV PRN ×3 (02:57→20:09)
[2018-06-18] MEDS: THIAMINE HCL 500 MG in NORMAL SALINE 250 ML IV SCH ×2 (07:01→13:22)
[2018-06-18] MEDS: METFORMIN HCL 500 MG TABLET PO SCH ×2 (08:11→16:17)
[2018-06-18] MEDS: BUDESONIDE NEB 0.5 MG/2 ML AMPUL NEB SCH ×2 (09:01→20:03)
[2018-06-18] MEDS: PANTOPRAZOLE SODIUM 40 MG VIAL IV SCH (10:20)
[2018-06-18] MEDS: FOLIC ACID 1 MG in NORMAL SALINE 50 ML IV SCH (10:20)
[2018-06-18] MEDS: LEVETIRACETAM 500 MG TABLET PO SCH ×2 (10:21→22:26)
[2018-06-18] MEDS: ASPIRIN 81 MG TABLET, CHEWABLE PO SCH (10:21)
[2018-06-18] MEDS: TAMSULOSIN HCL 0.4 MG CAP.SR.24H PO SCH (10:21)
[2018-06-18] MEDS: AMLODIPINE BESYLATE 10 MG TABLET PO SCH (10:21)
[2018-06-18] MEDS: METOPROLOL SUCCINATE 50 MG TAB.SR.24H PO SCH (10:21)
[2018-06-18] MEDS: GLIPIZIDE 5 MG TABLET PO SCH ×2 (10:22→17:19)
[2018-06-18] MEDS: ISOSORBIDE MONONITRATE 30 MG TAB.ER.24H PO SCH (10:22)
[2018-06-18] MEDS: DOCUSATE SODIUM 100 MG CAPSULE PO SCH ×2 (10:23→19:49)
[2018-06-18] MEDS: 1/2 NORMAL SALINE 1,000 ML IV PRN (10:27)
[2018-06-18] MEDS: CEFTRIAXONE SODIUM 2,000 MG in DEXTROSE 5%-WATER 100 ML IV SCH (11:42)
[2018-06-18] MEDS: ACETAMINOPHEN 325 MG TABLET PO PRN ×2 (14:15→22:29)
[2018-06-18] MEDS: INSULIN LISPRO 100 UNIT/ML 3 ML VIAL SUBCUT PRN (17:18)
--- NOTE | 2018-06-18 19:41 | PDOC PROGRESS REPORT ---
Subjective Progress Note for:: 06/18/18 Subjective:: This is a 63 yr old male with a past medical history of pulmonary embolism off anticoagulation, hypertension and kol-myxsqjk-vrfpchyuj diabetes mellitus who was initially admitted due to acute encephalopathy deemed to be secondary to seizure. Reports history of alcohol use. Patient was started on Keppra upon admission. He was also started on thiamine and folate. Upon encounter today, patient appears comfortable. He says he feels much better today. No recurrence of seizures since admission. He did admit to drinking 3 bottles of beer a day and drinks a quart of liquor 3 times a week and stopped drinking 2 days prior to admission. Patient is coherent and oriented to person and place but not to time. He complains of vague, achy chest pain initially yesterday and this morning says it's more on the epigastric area. He was given a GI cocktail yesterday and was started on Protonix and sent on the partially relieved the discomfort. Reason For Visit: DECREASED RESPONSIVENESS, POSSIBLE POSTICTAL Physical Exam Vital Signs: Temp Pulse Resp BP Pulse Ox 98.3 F 59 L 16 133/70 H 97 06/18/18 15:36 06/18/18 15:36 06/18/18 15:36 06/18/18 15:36 06/18/18 15:36 Intake & Output 06/17/18 06/18/18 06/19/18 06:59 06:59 06:59 Intake Total 3539.2 4170.2 1375.2 Output Total 4000 2325 Balance -460.8 1845.2 1375.2 Weight 221 lb 5.506 oz 217 lb 2.485 oz General appearance: PRESENT: no acute distress, well-developed, well-nourished Head exam: PRESENT: atraumatic, normocephalic Eye exam: PRESENT: conjunctiva pink, EOMI, PERRLA. ABSENT: scleral icterus Ear exam: PRESENT: normal external ear exam Mouth exam: PRESENT: moist, tongue midline Neck exam: ABSENT: carotid bruit, JVD, lymphadenopathy, thyromegaly Respiratory exam: PRESENT: clear to auscultation rubin. ABSENT: rales, rhonchi, wheezes Cardiovascular exam: PRESENT: RRR. ABSENT: diastolic murmur, rubs, systolic murmur Pulses: PRESENT: normal dorsalis pedis pul GI/Abdominal exam: PRESENT: normal bowel sounds, soft. ABSENT: distended, guarding, mass, organolmegaly, rebound, tenderness Rectal exam: PRESENT: deferred Neurological exam: PRESENT: alert, awake, oriented to person, oriented to place Results Laboratory Results: 06/17/18 07:19 06/17/18 07:19 06/13/18 00:05 Blood Blood Culture - Final NO GROWTH IN 5 DAYS 06/12/18 06/12/18 06/12/18 19:00 19:00 19:00 Creatine Kinase 37 L CK-MB (CK-2) 0.80 Troponin I 0.062 NT-Pro-B Natriuret Pep 89 06/13/18 06/13/18 06/13/18 00:05 06:33 06:33 Creatine Kinase 28 L CK-MB (CK-2) 0.53 Troponin I 0.057 0.056 NT-Pro-B Natriuret Pep 80 06/13/18 06/13/18 06/13/18 15:28 15:28 21:30 Creatine Kinase 27 L 21 L CK-MB (CK-2) 0.50 Troponin I 0.057 NT-Pro-B Natriuret Pep 06/13/18 06/17/18 21:30 13:42 Creatine Kinase CK-MB (CK-2) 0.32 Troponin I 0.055 0.066 NT-Pro-B Natriuret Pep Impressions: Chest X-Ray 06/12/18 19:41 IMPRESSION: No acute disease. Head CT 06/12/18 20:46 IMPRESSION: No acute intracranial hemorrhage. Head MRI 06/14/18 00:00 IMPRESSION: 1. Chronic atrophy, small vessel disease as above. 2. Fairly extensive paranasal sinus disease. This looks relatively chronic. 3. No recent CVA. No acute intracranial abnormality. EVIDENCE OF ACUTE STROKE: NO. Assessment & Plan - Diagnosis (1) Altered mental status Qualifiers: Altered mental status type: coma Coma depth: [place] coma 9-12 Coma timing: in the field (EMT or ambulance) Qualified Code(s): R40.2421 - [place] coma scale score 9-12, in the field [EMT or ambulance] Is this a current diagnosis for this admission?: Yes Plan: Resolved. Likely postictal related. (2) Seizure Is this a current diagnosis for this admission?: Yes Plan: Possibly alcohol withdrawal seizure as patient does reported that he drinks 3 bottles of beer/day and a quart of liquor 3 times a week. (3) Elevated troponin Is this a current diagnosis for this admission?: Yes Plan: Patient initially complaining of atypical chest pain but complains today of epigastric discomfort. EKG has been unremarkable. Troponin is slightly elevated 0.066. He will be scheduled for a stress test tomorrow. - Time Time Spent with patient: 15-24 minutes
[2018-06-18] MEDS: SIMVASTATIN 10 MG TABLET PO SCH (22:26)
[2018-06-18] MEDS ORDERED: THIAMINE HCL INJ 200 MG/2 ML VIAL ONE ×3 (23:15→23:24)
[2018-06-19] MEDS: THIAMINE HCL 500 MG in NORMAL SALINE 250 ML IV SCH ×5 (06:32→21:10)
[2018-06-19] MEDS ORDERED: ONDANSETRON HCL INJ/PF 4 MG/2 ML SDV IV PRN (07:30)
[2018-06-19] MEDS ORDERED: ONDANSETRON 4 MG TAB.RAPDIS PO PRN (07:30)
[2018-06-19] MEDS: BUDESONIDE NEB 0.5 MG/2 ML AMPUL NEB SCH ×2 (08:39→21:06)
[2018-06-19] MEDS: ISOSORBIDE MONONITRATE 30 MG TAB.ER.24H PO SCH (11:49)
[2018-06-19] MEDS: METFORMIN HCL 500 MG TABLET PO SCH ×2 (11:49→16:34)
[2018-06-19] MEDS: ASPIRIN 81 MG TABLET, CHEWABLE PO SCH (11:49)
[2018-06-19] MEDS: TAMSULOSIN HCL 0.4 MG CAP.SR.24H PO SCH (11:49)
[2018-06-19] MEDS: METOPROLOL SUCCINATE 50 MG TAB.SR.24H PO SCH (11:50)
[2018-06-19] MEDS: DOCUSATE SODIUM 100 MG CAPSULE PO SCH ×2 (11:50→18:44)
[2018-06-19] MEDS: LEVETIRACETAM 500 MG TABLET PO SCH ×2 (11:50→21:10)
[2018-06-19] MEDS: GLIPIZIDE 5 MG TABLET PO SCH ×2 (11:50→18:42)
[2018-06-19] MEDS: AMLODIPINE BESYLATE 10 MG TABLET PO SCH (11:50)
[2018-06-19] MEDS: PANTOPRAZOLE SODIUM 40 MG VIAL IV SCH (11:51)
[2018-06-19] MEDS: KETOROLAC TROMETHAMINE INJ/PF 30 MG/1 ML SDV IV PRN ×2 (12:46→18:44)
[2018-06-19] MEDS: CEFTRIAXONE SODIUM 2,000 MG in DEXTROSE 5%-WATER 100 ML IV SCH (12:47)
[2018-06-19] MEDS: FOLIC ACID 1 MG in NORMAL SALINE 50 ML IV SCH (12:47)
[2018-06-19] MEDS ORDERED: REGADENOSON INJ 0.4 MG/5 ML DISP.SYRIN IV ONE (13:37)
[2018-06-19] MEDS: ACETAMINOPHEN 325 MG TABLET PO PRN ×2 (16:36→20:39)
--- NOTE | 2018-06-19 20:10 | PDOC PROGRESS REPORT ---
Subjective Progress Note for:: 06/19/18 Subjective:: This is a 63 yr old male with a past medical history of pulmonary embolism off anticoagulation, hypertension and qvw-oyeudrt-lgnzofkqa diabetes mellitus who was initially admitted due to acute encephalopathy deemed to be secondary to seizure. Reports history of alcohol use. Patient was started on Keppra upon admission. He was also started on thiamine and folate. He did admitted to drinking 3 bottles of beer a day and drinks a quart of liquor 3 times a week and stopped drinking 2 days prior to admission. No acute event overnight. Patient appears comfortable. He says he feels much better today. No recurrence of seizures since admission. He says his epigastric discomfort has improved. He went for a stress test today. Reason For Visit: DECREASED RESPONSIVENESS, POSSIBLE POSTICTAL Physical Exam Vital Signs: Temp Pulse Resp BP Pulse Ox 98.8 F 69 20 136/77 H 97 06/19/18 16:07 06/19/18 16:07 06/19/18 16:07 06/19/18 16:07 06/19/18 16:07 Intake & Output 06/18/18 06/19/18 06/20/18 06:59 06:59 06:59 Intake Total 4170.2 3287.2 1585 Output Total 2325 Balance 1845.2 3287.2 1585 Weight 217 lb 2.485 oz 213 lb 2.992 oz General appearance: PRESENT: no acute distress, well-developed, well-nourished Head exam: PRESENT: atraumatic, normocephalic Eye exam: PRESENT: conjunctiva pink, EOMI, PERRLA. ABSENT: scleral icterus Ear exam: PRESENT: normal external ear exam Mouth exam: PRESENT: moist, tongue midline Neck exam: ABSENT: carotid bruit, JVD, lymphadenopathy, thyromegaly Respiratory exam: PRESENT: clear to auscultation rubin. ABSENT: rales, rhonchi, wheezes Results Laboratory Results: 06/17/18 07:19 06/17/18 07:19 06/16/18 17:02 CSF VDRL Non Reactive 06/16/18 16:50 Cerebral Spinal Fluid - Csf Gram Stain - Final 06/16/18 16:50 Cerebral Spinal Fluid - Csf CSF Culture - Final NO GROWTH 3 DAYS 06/12/18 06/12/18 06/12/18 19:00 19:00 19:00 Creatine Kinase 37 L CK-MB (CK-2) 0.80 Troponin I 0.062 NT-Pro-B Natriuret Pep 89 06/13/18 06/13/18 06/13/18 00:05 06:33 06:33 Creatine Kinase 28 L CK-MB (CK-2) 0.53 Troponin I 0.057 0.056 NT-Pro-B Natriuret Pep 80 06/13/18 06/13/18 06/13/18 15:28 15:28 21:30 Creatine Kinase 27 L 21 L CK-MB (CK-2) 0.50 Troponin I 0.057 NT-Pro-B Natriuret Pep 06/13/18 06/17/18 21:30 13:42 Creatine Kinase CK-MB (CK-2) 0.32 Troponin I 0.055 0.066 NT-Pro-B Natriuret Pep Impressions: Chest X-Ray 06/12/18 19:41 IMPRESSION: No acute disease. Head CT 06/12/18 20:46 IMPRESSION: No acute intracranial hemorrhage. Head MRI 06/14/18 00:00 IMPRESSION: 1. Chronic atrophy, small vessel disease as above. 2. Fairly extensive paranasal sinus disease. This looks relatively chronic. 3. No recent CVA. No acute intracranial abnormality. EVIDENCE OF ACUTE STROKE: NO. Assessment & Plan - Diagnosis (1) Altered mental status Qualifiers: Altered mental status type: coma Coma depth: Hu coma 9-12 Coma timing: in the field (EMT or ambulance) Qualified Code(s): R40.2421 - [place] coma scale score 9-12, in the field [EMT or ambulance] Is this a current diagnosis for this admission?: Yes Plan: Resolved. Likely postictal related. (2) Seizure Is this a current diagnosis for this admission?: Yes Plan: Possibly alcohol withdrawal seizure as patient does reported that he drinks 3 bottles of beer/day and a quart of liquor 3 times a week. (3) Elevated troponin Is this a current diagnosis for this admission?: Yes Plan: EKG has been unremarkable. Troponin is slightly elevated 0.066. Patient went for stress testing today. Discussed results with Dr. Patrick. - Time Time Spent with patient: 15-24 minutes
[2018-06-19] MEDS: ATORVASTATIN CALCIUM 40 MG TABLET PO SCH (21:10)
[2018-06-20] MEDS: KETOROLAC TROMETHAMINE INJ/PF 30 MG/1 ML SDV IV PRN ×4 (02:50→22:58)
[2018-06-20] MEDS: ACETAMINOPHEN 325 MG TABLET PO PRN (05:23)
[2018-06-20] MEDS: THIAMINE HCL 500 MG in NORMAL SALINE 250 ML IV SCH ×3 (05:23→21:44)
[2018-06-20] MEDS: METFORMIN HCL 500 MG TABLET PO SCH ×2 (08:42→17:33)
[2018-06-20] MEDS: BUDESONIDE NEB 0.5 MG/2 ML AMPUL NEB SCH ×2 (09:24→19:56)
[2018-06-20] MEDS: METOPROLOL SUCCINATE 50 MG TAB.SR.24H PO SCH (10:56)
[2018-06-20] MEDS: ISOSORBIDE MONONITRATE 30 MG TAB.ER.24H PO SCH (10:56)
[2018-06-20] MEDS: AMLODIPINE BESYLATE 10 MG TABLET PO SCH (10:56)
[2018-06-20] MEDS: PANTOPRAZOLE SODIUM 40 MG VIAL IV SCH (10:57)
[2018-06-20] MEDS: ASPIRIN 81 MG TABLET, CHEWABLE PO SCH (10:57)
[2018-06-20] MEDS: DOCUSATE SODIUM 100 MG CAPSULE PO SCH ×2 (10:57→17:34)
[2018-06-20] MEDS: LISINOPRIL 10 MG TABLET PO SCH (10:57)
[2018-06-20] MEDS: TAMSULOSIN HCL 0.4 MG CAP.SR.24H PO SCH (10:58)
[2018-06-20] MEDS: GLIPIZIDE 5 MG TABLET PO SCH ×2 (10:58→17:34)
[2018-06-20] MEDS: LEVETIRACETAM 500 MG TABLET PO SCH ×2 (11:06→21:44)
[2018-06-20] MEDS ORDERED: NITROGLYCERIN 0.4 MG/TAB 25 TAB/BOTTLE SL PRN (11:10)
[2018-06-20] MEDS: FOLIC ACID 1 MG in NORMAL SALINE 50 ML IV SCH (11:13)
[2018-06-20] MEDS: CEFTRIAXONE SODIUM 2,000 MG in DEXTROSE 5%-WATER 100 ML IV SCH (12:17)
[2018-06-20] MEDS: INSULIN LISPRO 100 UNIT/ML 3 ML VIAL SUBCUT PRN (12:17)
--- NOTE | 2018-06-20 16:50 | PDOC PROGRESS REPORT ---
Subjective Progress Note for:: 06/20/18 Subjective:: This is a 63 yr old male with a past medical history of pulmonary embolism off anticoagulation, hypertension and abc-eifwwyh-cbquwdoxb diabetes mellitus who was initially admitted due to acute encephalopathy deemed to be secondary to seizure. Reports history of alcohol use. Patient was started on Keppra upon admission. He was also started on thiamine and folate. He did admitted to drinking 3 bottles of beer a day and drinks a quart of liquor 3 times a week and stopped drinking 2 days prior to admission. No acute event overnight. He ambulated with PT with assistance. No recurrence of seizures since admission. This morning, he says he had mild chest pain partially relieved by nitro. Reason For Visit: DECREASED RESPONSIVENESS, POSSIBLE POSTICTAL Physical Exam Vital Signs: Temp Pulse Resp BP Pulse Ox 98.2 F 59 L 18 114/73 96 06/20/18 15:20 06/20/18 15:20 06/20/18 15:20 06/20/18 15:20 06/20/18 15:20 Intake & Output 06/19/18 06/20/18 06/21/18 06:59 06:59 06:59 Intake Total 3287.2 2745 150.2 Balance 3287.2 2745 150.2 Weight 213 lb 2.992 oz 213 lb 6.519 oz General appearance: PRESENT: no acute distress, well-developed, well-nourished Head exam: PRESENT: atraumatic, normocephalic Eye exam: PRESENT: conjunctiva pink, EOMI, PERRLA. ABSENT: scleral icterus Ear exam: PRESENT: normal external ear exam Mouth exam: PRESENT: moist, tongue midline Neck exam: ABSENT: carotid bruit, JVD, lymphadenopathy, thyromegaly Respiratory exam: PRESENT: clear to auscultation rubin. ABSENT: rales, rhonchi, wheezes Cardiovascular exam: PRESENT: RRR. ABSENT: diastolic murmur, rubs, systolic murmur Pulses: PRESENT: normal dorsalis pedis pul GI/Abdominal exam: PRESENT: normal bowel sounds, soft. ABSENT: distended, guarding, mass, organolmegaly, rebound, tenderness Rectal exam: PRESENT: deferred Neurological exam: PRESENT: alert, awake, oriented to person, oriented to place, CN II-XII grossly intact. ABSENT: motor sensory deficit Results Laboratory Results: 06/17/18 07:19 06/17/18 07:19 06/12/18 06/12/18 06/12/18 19:00 19:00 19:00 Creatine Kinase 37 L CK-MB (CK-2) 0.80 Troponin I 0.062 NT-Pro-B Natriuret Pep 89 06/13/18 06/13/18 06/13/18 00:05 06:33 06:33 Creatine Kinase 28 L CK-MB (CK-2) 0.53 Troponin I 0.057 0.056 NT-Pro-B Natriuret Pep 80 06/13/18 06/13/18 06/13/18 15:28 15:28 21:30 Creatine Kinase 27 L 21 L CK-MB (CK-2) 0.50 Troponin I 0.057 NT-Pro-B Natriuret Pep 06/13/18 06/17/18 21:30 13:42 Creatine Kinase CK-MB (CK-2) 0.32 Troponin I 0.055 0.066 NT-Pro-B Natriuret Pep Impressions: Chest X-Ray 06/12/18 19:41 IMPRESSION: No acute disease. Head CT 06/12/18 20:46 IMPRESSION: No acute intracranial hemorrhage. Head MRI 06/14/18 00:00 IMPRESSION: 1. Chronic atrophy, small vessel disease as above. 2. Fairly extensive paranasal sinus disease. This looks relatively chronic. 3. No recent CVA. No acute intracranial abnormality. EVIDENCE OF ACUTE STROKE: NO. Assessment & Plan - Diagnosis (1) Altered mental status Qualifiers: Altered mental status type: coma Coma depth: Hu coma 9-12 Coma timing: in the field (EMT or ambulance) Qualified Code(s): R40.2421 - [place] coma scale score 9-12, in the field [EMT or ambulance] Is this a current diagnosis for this admission?: Yes Plan: Resolved. Likely postictal related. (2) Seizure Is this a current diagnosis for this admission?: Yes Plan: Possibly alcohol withdrawal seizure as patient does reported that he drinks 3 bottles of beer/day and a quart of liquor 3 times a week. (3) Elevated troponin Is this a current diagnosis for this admission?: Yes Plan: EKG has been unremarkable. Troponin peaked at 0.066. Patient went for stress testing on 06/18/18. Discussed results with Dr. Patrick and who has recommended medical treatment and who will also be following patient. - Time Time Spent with patient: 15-24 minutes
[2018-06-20] MEDS: ALBUTEROL SULFATE 0.083% NEB 2.5 MG/3 ML AMPUL NEB PRN (19:56)
--- NOTE | 2018-06-20 20:16 | DRAGON STRESS TEST REPORT ---
Intravenous Lexiscan Cardiolite stress test using single photon emmision computerized tomography. Date of procedure: 06/19/2018. Ordering Provider: Dr. Delacruz.Patient's status: In Patient Indication: Chest pain. Coronary risk factors: Age. Resting EKG: Sinus Rhythm. Within Normal Limits. . Stress EKG: No changes of ischemia. The patient had no chest pain or discomfort, and there were no arrhythmias seen. Reason for termination: Protocol. Conclusions: Normal EKG and hemodynamic response to IV Lexiscan. Nuclear data: At rest the patient was given 15.28 millicuries of technetium 99m sestamibi injected intravenously. As per protocol rest non gated SPECT images were obtained. Subsequently the patient was given intravenous Lexiscan at a dose of 0.4 mg in 5 mL intravenously, followed by flush with normal saline. Subsequently the stress dose of 41.6 millicuries of technetium 99m sestamibi was injected intravenously. As per protocol stress gated images were obtained. Nuclear interpretation: Review of images showed that there is a small area of perfusion defect involving the LV apex and the stress images, with normal perfusion in this area and the rest images. This area has normal motion contraction and thickening by gated study. Hence this is a small area of reversible ischemia in the LV apex. The rest of the segments of the myocardium had normal perfusion at rest, and normal perfusion post stress with IV Lexiscan. All segments of the myocardium had normal motion, contraction, and thickening by gated study. T. I D. ratio was normal at 1.16. There is no transient ischemic calcification of the left ventricle. Computer read rest, and stress left ventricular ejection fraction were 54 %, and 51 %, respectively. Visually both the stress and rest ejection fractions were normal, and greater than 55%. Conclusion: 1. There is scintigraphic evidence of Lexiscan induced myocardial ischemia involving a small area of the left ventricle apex. 2. There is no scintigraphic evidence of myocardial infarction/scar. Recommendations: 1. Aggressive treatment of coronary artery disease, with beta-blockers, statins, aspirin and nitrates if no contraindications. 2. Aggressive risk factor modification, and treating the underlying co- morbidities. [facility] HOSPITALGurjit
--- NOTE | 2018-06-20 20:41 | PDOC CONSULTATION ---
Consultation-Blank Consultation: CARDIOLOGY CONSULTATION by Dr. Josephine Mariscal on 06/20/2018. Patient seen at 3 PM on 06/20/2018. Reason For Consultation: Patient with mildly abnormal stress test with chest pains. HISTORY OF PRESENT ILLNESS: PAST MEDICAL HISTORY: PAST SURGICAL HISTORY: ALLERGIES: The patient is allergic to sulfa. FAMILY HISTORY: DISPOSITION: The patient is a full code. His relative Mr. Conor Mccoy is the surrogate healthcare decision maker on the patient. REVIEW OF SYSTEMS: PHYSICAL EXAMINATION: The patient appears to be disheveled, chronically ill. Although he complains of chest pain he is in no acute distress. This seems to be chest wall pain rather than angina. Selected Entries 06/20/18 15:20 Temperature 98.2 F Temperature Oral Source Pulse Rate 59 L Respiratory 18 Rate Blood Pressure 114/73 Blood Pressure 86 Mean BP Location Left Arm BP Position Supine O2 Sat by Pulse 96 Oximetry Oxygen Delivery Room Air Method HEAD: Is atraumatic normocephalic. EYES: Pupils are equal round regular reactive to light accommodation. Extraocular movements are normal. There is no conjunctival pallor. There is no scleral icterus. EARS: Tympanic memories are intact. External auditory canals are clear. NOSE: There is no deviated nasal septum. There is no inflammation of the nasal mucous membranes. MOUTH: Mucous membranes of mouth are moist. Tongue is moist. There is no ulcers in the mouth. There is no bleeding from the gums. THROAT: There is no redness or exudates in the throat. SKIN: There is no petechia or ecchymosis. There is no skin lesions or skin rashes. NECK: Supple. There is no JVD. Carotids are equal there is no bruit. There is no lymphadenopathy. There is no goiter. There is no accessory muscle respiration in use. Trachea central. LUNGS: Shows diminished air entry and prolonged expiration. There is no rhonchi rales or wheezing. The right front of chest wall tenderness is reproduced by palpating that area. HEART: S1-S2 is heard. There is no S3 gallop there is no S4 gallop. S1 is of normal intensity. There is systolic murmur left sternal border and apex there is no rub. ABDOMEN: Soft. The nontender. There is no hepatosplenomegaly. Bowel sounds are well heard. There is no tender areas of masses. Extremities: Femorals are diminished. There is no femoral bruits. Leg pulses are diminished. There is no pedal edema. There is no DVT or cellulitis. There is no calf tenderness. There is no sinus or clubbing. FAMILY MEDICINE RESIDENT: The patient is conscious awake oriented x3, but of slow mentation. There is no focal deficits. PSYCHIATRIC: The patient's judgment and insight although slow seem to be intact. The patient's affect appears to be slightly withdrawn. 06/12/18 06/13/18 06/17/18 20:50 06:33 07:19 WBC 9.4 RBC 4.65 Hgb 14.2 Hct 42.1 MCV 91 MCH 30.5 MCHC 33.7 RDW 13.9 Plt Count 184 Sodium Potassium Chloride Carbon Dioxide Anion Gap BUN Creatinine Est GFR (Non-Af Amer) Glucose Hemoglobin A1c % 9.3 H Lactic Acid 2.4 H Calcium 06/17/18 07:19 WBC RBC Hgb Hct MCV MCH MCHC RDW Plt Count Sodium 137.9 Potassium 3.6 Chloride 108 H Carbon Dioxide 23 Anion Gap 7 BUN 17 Creatinine 0.73 Est GFR (Non-Af Amer) > 60 Glucose 221 H Hemoglobin A1c % Lactic Acid Calcium 8.7 06/13/18 04:08 Magnesium Hydroxide [Milk of Magnesia 30 ml Udcup] 30 ml PO HSP PRN 06/13/18 04:20 Dextrose 50%-Water [Dextrose Inj 50% Syringe (25 gm/50 ml)] 12.5 gm IV PRN PRN Dextrose 50%-Water [Dextrose Inj 50% Syringe (25 gm/50 ml)] 25 gm IV PRN PRN Dextrose [Glutose 40% Gel 15 gm Tube] 15 gm PO PRN PRN Dextrose [Glutose 40% Gel 15 gm Tube] 30 gm PO PRN PRN Glucagon,Human Recombinant [Glucagen Inj 1 mg Vial] 1 mg IM PRN PRN Insulin Lispro [Humalog Insulin 100 Unit/1 ml 3 ml Vial] 0 - 12 unit SUBCUT ACHSP PRN 06/13/18 04:29 Acetaminophen [Tylenol 325 mg Tablet] 650 mg PO Q4HP PRN Acetaminophen [Tylenol 650 mg Supp] 650 mg ND Q4HP PRN Albuterol Sulfate [Ventolin 0.083% Neb 2.5 mg/3 ml Ampul] 2.5 mg NEB RTQ1HP PRN 06/13/18 06:00 Normal Saline [Saline Flush 2.5 ml Monoject Prefil Syrin] 2.5 ml IV Q8 06/13/18 08:00 Budesonide [Pulmicort Neb 0.5 mg/2 ml Ampul] 0.5 mg NEB RTQ12 06/13/18 10:00 Docusate Sodium [Colace 100 mg Capsule] 100 mg PO BID Levetiracetam [Keppra 500 mg Tablet] 500 mg PO Q12 Metoprolol Succinate [Toprol Xl 50 mg Tab.sr] 100 mg PO DAILY Tamsulosin HCl [Flomax 0.4 mg Cap.sr] 0.4 mg PO DAILY 06/14/18 11:26 Albuterol Sulfate [Proair Hfa Inhalation Aerosol 8.5 gm Mdi] 2 puff IH Q4HP PRN 06/14/18 16:00 Metformin HCl [Glucophage 500 mg Tablet] 500 mg PO BIDACBS 06/14/18 18:00 Glipizide [Glucotrol 5 mg Tablet] 2.5 mg PO BID 06/15/18 10:00 Amlodipine Besylate [Norvasc 10 mg Tablet] 10 mg PO DAILY Aspirin [Aspirin 81 mg Chewable Tablet] 81 mg PO DAILY 06/16/18 12:00 Ceftriaxone Sodium [Rocephin Inj 2000 mg Vial] 2,000 mg Dextrose 5%-Water [D5w 100 ml IV Soln] 100 ml IV NOON 06/19/18 07:30 Flu Vacc [id number](6Mos Up)/Pf [Fluarix Adlt Quad Vac 0.5 ml Syr] 0.5 ml IM .DISCHARGE PRN Ondansetron HCl/Pf [Zofran Inj/Pf 4 mg/2 ml Sdv] 4 mg IV Q4HP PRN Ondansetron [Zofran Odt 4 mg Tablet] 4 mg PO Q4HP PRN 06/19/18 22:00 Atorvastatin Calcium [Lipitor 40 mg Tablet] 40 mg PO QHS 06/20/18 10:00 Lisinopril [Prinivil 10 mg Tablet] 10 mg PO DAILY 06/20/18 11:10 Nitroglycerin [Nitrostat 0.4 mg (1/150 Gr) Tabs 25/Bottle] 1 tab SL Q5MP PRN 06/20/18 21:47 Ketorolac Tromethamine [Toradol Inj/Pf 30 mg/1 ml Sdv] 30 mg IV Q6HP PRN 06/21/18 10:00 Isosorbide Mononitrate [Imdur 30 mg Tablet.er] 30 mg PO DAILY 06/21/18 11:00 Folic Acid [Folvite 1 mg Tablet] 1 mg PO DAILY THE PATIENT'S EKG: IS WITHIN NORMAL LIMITS. HIS CHEST X-RAY: SHOWS NO ACUTE CHANGES. HIS IV LEXISCAN CARDIOLITE STRESS TEST ON 06/19/2018: SHOWS A SMALL AREA OF REVERSIBLE ISCHEMIA IN THE LV APEX. THERE IS NO SCAR OR OR. IMPRESSION/RECOMMENDATION: 1. Chest wall pain: Clearly noncardiac. Doubt if the patient does have anginal symptoms. 2. Coronary artery disease, by history, and by stress testing. Note that the stress testing showed a small area of reversible ischemia in the LV apex. In view of this would recommend continue the patient on aspirin, amlodipine, beta- ayla, and statins. Would increase the patient's Imdur to 60 mg p.o. daily., And also give the patient sublingual nitroglycerin 1 x 150 as needed chest pain or discomfort. We will check the patient's lipid level. The patient states he has a prior history of stents put in. He is not sure as to which hospital the stents were placed in. He denies history of myocardial infarction. The patient will need close outpatient cardiology follow-up. 3. Diabetes mellitus.: Continue antidiabetic treatment. 4. Seizure disorder: No recurrence of seizures on Keppra. 5. Hyperlipidemia: Continue statins. Would recommend getting the patient is lipid levels. Will order for the a.m. 6. History of alcohol abuse: Patient consult to refrain from alcohol abuse. 5 minutes spent on this. On this patient explaining the ill effects of alcohol. 7. COPD by examination: Continue bronchodilators. 8. Tobacco abuse disorder: Tobacco cessation counseling given. 3 minutes spent on this. 9. ANXIETY and DEPRESSION: We will recommend continue anti-anxiolytic agent and antidepressants. NOTE medications have been reviewed. Medication adjustment and management plan discussed with attending physician on the case. Discussed with the patient the results of the EKG the stress test on the troponin. Medical decision making is of moderate to high complexity in view of the patient being a poor historian. 60 minutes spent on this patient with more than 50% of time spent in direct patient care. Will follow with you
[2018-06-20] MEDS: ATORVASTATIN CALCIUM 40 MG TABLET PO SCH (21:44)
[2018-06-21] MEDS: KETOROLAC TROMETHAMINE INJ/PF 30 MG/1 ML SDV IV PRN ×4 (05:38→22:36)
[2018-06-21] MEDS: THIAMINE HCL 500 MG in NORMAL SALINE 250 ML IV SCH (05:45)
[2018-06-21] MEDS: BUDESONIDE NEB 0.5 MG/2 ML AMPUL NEB SCH ×2 (08:37→19:29)
[2018-06-21] MEDS: METOPROLOL SUCCINATE 50 MG TAB.SR.24H PO SCH (09:24)
[2018-06-21] MEDS: ASPIRIN 81 MG TABLET, CHEWABLE PO SCH (09:24)
[2018-06-21] MEDS: TAMSULOSIN HCL 0.4 MG CAP.SR.24H PO SCH (09:24)
[2018-06-21] MEDS: METFORMIN HCL 500 MG TABLET PO SCH ×2 (09:24→16:07)
[2018-06-21] MEDS: ISOSORBIDE MONONITRATE 30 MG TAB.ER.24H PO SCH (09:24)
[2018-06-21] MEDS: DOCUSATE SODIUM 100 MG CAPSULE PO SCH ×2 (09:24→19:49)
[2018-06-21] MEDS: AMLODIPINE BESYLATE 10 MG TABLET PO SCH (09:24)
[2018-06-21] MEDS: LISINOPRIL 10 MG TABLET PO SCH (09:28)
[2018-06-21] MEDS: GLIPIZIDE 5 MG TABLET PO SCH ×2 (09:29→19:49)
[2018-06-21] MEDS: LEVETIRACETAM 500 MG TABLET PO SCH ×2 (09:30→21:06)
[2018-06-21] MEDS: CEFTRIAXONE SODIUM 2,000 MG in DEXTROSE 5%-WATER 100 ML IV SCH (16:08)
[2018-06-21] MEDS: FOLIC ACID 1 MG TABLET PO SCH (16:11)
--- NOTE | 2018-06-21 17:51 | PDOC PROGRESS REPORT ---
Subjective Progress Note for:: 06/21/18 Subjective:: This is a 63 yr old male with a past medical history of pulmonary embolism off anticoagulation, hypertension and agp-zpzzeor-honohapst diabetes mellitus who was initially admitted due to acute encephalopathy deemed to be secondary to seizure. Reports history of alcohol use. Patient was started on Keppra upon admission. He was also started on thiamine and folate. He did admitted to drinking 3 bottles of beer a day and drinks a quart of liquor 3 times a week and stopped drinking 2 days prior to admission. No acute event overnight. He ambulated with PT with assistance. No recurrence of seizures since admission. He denies chest pain today. No SOB, palpitations or dizziness. Patient is deemed fit andstable for discharge to SNF/rehab. Still awaiting for placement. Patient did say he wants his siblings updated about him including plan of care. Discussed and updated patient's siblings (Yanni and Conor) over phone. Reason For Visit: DECREASED RESPONSIVENESS, POSSIBLE POSTICTAL Physical Exam Vital Signs: Temp Pulse Resp BP Pulse Ox 97.4 F 61 17 132/82 H 99 06/21/18 15:35 06/21/18 15:35 06/21/18 15:35 06/21/18 15:35 06/21/18 15:35 Intake & Output 06/20/18 06/21/18 06/22/18 06:59 06:59 06:59 Intake Total 2745 2880.2 Output Total 1490 Balance 2745 1390.2 Weight 213 lb 6.519 oz 207 lb 7.28 oz General appearance: PRESENT: no acute distress, well-developed, well-nourished Eye exam: PRESENT: conjunctiva pink, EOMI, PERRLA. ABSENT: scleral icterus Ear exam: PRESENT: normal external ear exam Neck exam: ABSENT: carotid bruit, JVD, lymphadenopathy, thyromegaly Respiratory exam: PRESENT: clear to auscultation rubin. ABSENT: rales, rhonchi, wheezes Cardiovascular exam: PRESENT: RRR. ABSENT: diastolic murmur, rubs, systolic murmur Pulses: PRESENT: normal dorsalis pedis pul GI/Abdominal exam: PRESENT: normal bowel sounds, soft. ABSENT: distended, guarding, mass, organolmegaly, rebound, tenderness Rectal exam: PRESENT: deferred Neurological exam: PRESENT: alert, awake, oriented to person, oriented to place, oriented to situation Results Laboratory Results: 06/17/18 07:19 06/17/18 07:19 06/16/18 14:30 Blood Blood Culture - Final NO GROWTH IN 5 DAYS 06/16/18 12:47 Blood Blood Culture - Final NO GROWTH IN 5 DAYS 06/12/18 06/12/18 06/12/18 19:00 19:00 19:00 Creatine Kinase 37 L CK-MB (CK-2) 0.80 Troponin I 0.062 NT-Pro-B Natriuret Pep 89 06/13/18 06/13/18 06/13/18 00:05 06:33 06:33 Creatine Kinase 28 L CK-MB (CK-2) 0.53 Troponin I 0.057 0.056 NT-Pro-B Natriuret Pep 80 06/13/18 06/13/18 06/13/18 15:28 15:28 21:30 Creatine Kinase 27 L 21 L CK-MB (CK-2) 0.50 Troponin I 0.057 NT-Pro-B Natriuret Pep 06/13/18 06/17/18 21:30 13:42 Creatine Kinase CK-MB (CK-2) 0.32 Troponin I 0.055 0.066 NT-Pro-B Natriuret Pep Impressions: Chest X-Ray 06/12/18 19:41 IMPRESSION: No acute disease. Head CT 06/12/18 20:46 IMPRESSION: No acute intracranial hemorrhage. Head MRI 06/14/18 00:00 IMPRESSION: 1. Chronic atrophy, small vessel disease as above. 2. Fairly extensive paranasal sinus disease. This looks relatively chronic. 3. No recent CVA. No acute intracranial abnormality. EVIDENCE OF ACUTE STROKE: NO. Assessment & Plan - Diagnosis (1) Altered mental status Qualifiers: Altered mental status type: coma Coma depth: Hu coma 9-12 Coma timing: in the field (EMT or ambulance) Qualified Code(s): R40.2421 - Hu coma scale score 9-12, in the field [EMT or ambulance] Is this a current diagnosis for this admission?: Yes Plan: Resolved. Likely postictal related. (2) Seizure Is this a current diagnosis for this admission?: Yes Plan: Possibly alcohol withdrawal seizure as patient does reported that he drinks 3 bottles of beer/day and a quart of liquor 3 times a week. (3) Elevated troponin Is this a current diagnosis for this admission?: Yes Plan: EKG has been unremarkable. Troponin peaked at 0.066. Patient went for stress testing on 06/18/18. Optimized medial therapy for CAD. Cardiology following. - Time Time Spent with patient: 25-34 minutes
--- NOTE | 2018-06-21 20:36 | Progress Note ---
Provider Note Provider Note: CARDIOLOGY PROGRESS NOTE by Dr. Josephine Mariscal on 06/21/2018. SUBJECTIVE: The patient is not a reliable historian. He complains of right- sided chest wall pain reproduced by pressing on the chest. There is no clear- cut anginal symptoms. There is no arrhythmias. The patient denies any PND orthopnea or shortness of breath. There is no leg edema. The patient denies any palpitations. There is no ventricular arrhythmias seen on the monitor. There is no TIA CVA symptoms. PHYSICAL EXAM examination: The patient appears to be disheveled, and appears to be malnourished and chronically ill. At present he is in no acute distress. 06/21/18 11:30 Temperature 97.9 F Temperature Oral Source Pulse Rate 57 L Respiratory 16 Rate Blood Pressure 134/79 H Blood Pressure 97 Mean BP Location Left Arm BP Position Supine O2 Sat by Pulse 98 Oximetry Oxygen Delivery Room Air Method 06/21/18 06/21/18 06:38 10:58 POC Glucose 201 H 157 H HEAD: Is atraumatic normocephalic. EYES: Pupils are equal round regular reactive to light accommodation. Extraocular movements are normal. There is no conjunctival pallor. There is no scleral icterus. EARS: Tympanic memories are intact. External auditory canals are clear. NOSE: There is no deviated nasal septum. There is no inflammation of the nasal mucous membranes. MOUTH: Mucous membranes of mouth are moist. Tongue is moist. There is no ulcers in the mouth. There is no bleeding from the gums. THROAT: There is no redness or exudates in the throat. SKIN: There is no petechia or ecchymosis. There is no skin lesions or skin rashes. NECK: Supple. There is no JVD. Carotids are equal there is no bruit. There is no lymphadenopathy. There is no goiter. There is no accessory muscle respiration in use. Trachea central. LUNGS: Shows diminished air entry and prolonged expiration. There is no rhonchi rales or wheezing. The right front of chest wall tenderness is reproduced by palpating that area. HEART: S1-S2 is heard. There is no S3 gallop there is no S4 gallop. S1 is of normal intensity. There is systolic murmur left sternal border and apex there is no rub. ABDOMEN: Soft. The nontender. There is no hepatosplenomegaly. Bowel sounds are well heard. There is no tender areas of masses. Extremities: Femorals are diminished. There is no femoral bruits. Leg pulses are diminished. There is no pedal edema. There is no DVT or cellulitis. There is no calf tenderness. There is no sinus or clubbing. ITEM PROCESSOR: The patient is conscious awake oriented x3, but of slow mentation. There is no focal deficits. PSYCHIATRIC: The patient's judgment and insight although slow seem to be intact. The patient's affect appears to be slightly withdrawn. IMPRESSION/RECOMMENDATION: 1. Chest wall pain: Clearly noncardiac. Doubt if the patient does have anginal symptoms. 2. Coronary artery disease, by history, and by stress testing. Note that the stress testing showed a small area of reversible ischemia in the LV apex. In view of this would recommend continue the patient on aspirin, amlodipine, beta- ayla, and statins. We will check the patient's lipid level. The patient states he has a prior history of stents put in. He is not sure as to which hospital the stents were placed in. He denies history of myocardial infarction. The patient will need close outpatient cardiology follow-up. 3. Diabetes mellitus.: Continue antidiabetic treatment. 4. Seizure disorder: No recurrence of seizures on Keppra. 5. Hyperlipidemia: Continue statins. Would recommend getting the patient is lipid levels. Will order for the a.m. 6. History of alcohol abuse: Patient consult to refrain from alcohol abuse. 5 minutes spent on this. On this patient explaining the ill effects of alcohol. 7. COPD by examination: Continue bronchodilators. 8. Tobacco abuse disorder: Tobacco cessation counseling given. 3 minutes spent on this. 9. ANXIETY and DEPRESSION: We will recommend continue anti-anxiolytic agent and antidepressants. DISPOSITION: The patient is a full code. His relative Mr. Conor Mccoy. is a surrogate healthcare decision maker Medications reviewed. Discussed with the attending physician. Medical decision making is of moderate complexity. 40 minutes spent on this patient with more than 50% of time spent in direct patient care. Will sign off and follow the patient is an outpatient. Discussed with the hospitalist taking care of the patient.
[2018-06-21] MEDS: ATORVASTATIN CALCIUM 40 MG TABLET PO SCH (21:06)
[2018-06-22] MEDS: KETOROLAC TROMETHAMINE INJ/PF 30 MG/1 ML SDV IV PRN ×3 (05:53→18:12)
[2018-06-22 05:56] LABS: CHOLESTEROL 142.22 mg/dL (0-200); TRIGLYCERIDES 87 mg/dL (<150)
[2018-06-22 06:07] LABS: DIRECT LDL 87 mg/dL (<100)
[2018-06-22] MEDS: METFORMIN HCL 500 MG TABLET PO SCH ×2 (07:38→16:57)
[2018-06-22] MEDS: BUDESONIDE NEB 0.5 MG/2 ML AMPUL NEB SCH ×2 (08:18→20:33)
[2018-06-22] MEDS: DOCUSATE SODIUM 100 MG CAPSULE PO SCH ×2 (09:30→17:02)
[2018-06-22] MEDS: FOLIC ACID 1 MG TABLET PO SCH (09:30)
[2018-06-22] MEDS: GLIPIZIDE 5 MG TABLET PO SCH ×2 (09:30→17:02)
[2018-06-22] MEDS: ASPIRIN 81 MG TABLET, CHEWABLE PO SCH (09:30)
[2018-06-22] MEDS: TAMSULOSIN HCL 0.4 MG CAP.SR.24H PO SCH (09:30)
[2018-06-22] MEDS: LEVETIRACETAM 500 MG TABLET PO SCH ×2 (09:31→21:37)
[2018-06-22] MEDS: LISINOPRIL 10 MG TABLET PO SCH (09:31)
[2018-06-22] MEDS: ISOSORBIDE MONONITRATE 30 MG TAB.ER.24H PO SCH (09:31)
[2018-06-22] MEDS: METOPROLOL SUCCINATE 50 MG TAB.SR.24H PO SCH (09:32)
[2018-06-22] MEDS: AMLODIPINE BESYLATE 10 MG TABLET PO SCH (09:32)
[2018-06-22] MEDS: THIAMINE HCL 100 MG TABLET PO SCH (09:32)
[2018-06-22] MEDS: CEFTRIAXONE SODIUM 2,000 MG in DEXTROSE 5%-WATER 100 ML IV SCH (11:19)
[2018-06-22] MEDS: INSULIN LISPRO 100 UNIT/ML 3 ML VIAL SUBCUT PRN ×2 (11:19→21:37)
--- NOTE | 2018-06-22 17:52 | PDOC PROGRESS REPORT ---
Subjective Progress Note for:: 06/22/18 Subjective:: This is a 63 yr old male with a past medical history of pulmonary embolism off anticoagulation, hypertension and bon-krrrfas-gudlpkghm diabetes mellitus who was initially admitted due to acute encephalopathy deemed to be secondary to seizure. Reports history of alcohol use. Patient was started on Keppra upon admission. He was also started on thiamine and folate. He did admitted to drinking 3 bottles of beer a day and drinks a quart of liquor 3 times a week and stopped drinking 2 days prior to admission. No acute event overnight. He ambulated with PT with assistance. No recurrence of seizures since admission. No acute issues. Still awaiting for rehab [place] [facility]. Reason For Visit: DECREASED RESPONSIVENESS, POSSIBLE POSTICTAL Physical Exam Vital Signs: Temp Pulse Resp BP Pulse Ox 97.7 F 67 17 131/66 H 99 06/22/18 15:10 06/22/18 15:10 06/22/18 15:10 06/22/18 15:10 06/22/18 15:10 Intake & Output 06/21/18 06/22/18 06/23/18 06:59 06:59 06:59 Intake Total 2880.2 1660 100 Output Total 1490 2400 Balance 1390.2 -740 100 Weight 207 lb 7.28 oz 217 lb 2.485 oz General appearance: PRESENT: no acute distress, well-developed, well-nourished Head exam: PRESENT: atraumatic, normocephalic Eye exam: PRESENT: conjunctiva pink, EOMI, PERRLA. ABSENT: scleral icterus Ear exam: PRESENT: normal external ear exam Mouth exam: PRESENT: moist, tongue midline Neck exam: ABSENT: carotid bruit, JVD, lymphadenopathy, thyromegaly Respiratory exam: PRESENT: clear to auscultation rubin. ABSENT: rales, rhonchi, wheezes Cardiovascular exam: PRESENT: RRR. ABSENT: diastolic murmur, rubs, systolic murmur Pulses: PRESENT: normal dorsalis pedis pul GI/Abdominal exam: PRESENT: normal bowel sounds, soft. ABSENT: distended, guarding, mass, organolmegaly, rebound, tenderness Rectal exam: PRESENT: deferred Neurological exam: PRESENT: alert, awake, oriented to person, oriented to place, oriented to situation Results Laboratory Results: 06/17/18 07:19 06/17/18 07:19 06/22/18 05:10 Triglycerides 87 Cholesterol 142.22 LDL Cholesterol Direct 87 VLDL Cholesterol 17.0 HDL Cholesterol 47 06/16/18 14:30 Blood Blood Culture - Final NO GROWTH IN 5 DAYS 06/16/18 12:47 Blood Blood Culture - Final NO GROWTH IN 5 DAYS 06/12/18 06/12/18 06/12/18 19:00 19:00 19:00 Creatine Kinase 37 L CK-MB (CK-2) 0.80 Troponin I 0.062 NT-Pro-B Natriuret Pep 89 06/13/18 06/13/18 06/13/18 00:05 06:33 06:33 Creatine Kinase 28 L CK-MB (CK-2) 0.53 Troponin I 0.057 0.056 NT-Pro-B Natriuret Pep 80 06/13/18 06/13/18 06/13/18 15:28 15:28 21:30 Creatine Kinase 27 L 21 L CK-MB (CK-2) 0.50 Troponin I 0.057 NT-Pro-B Natriuret Pep 06/13/18 06/17/18 21:30 13:42 Creatine Kinase CK-MB (CK-2) 0.32 Troponin I 0.055 0.066 NT-Pro-B Natriuret Pep Impressions: Chest X-Ray 06/12/18 19:41 IMPRESSION: No acute disease. Head CT 06/12/18 20:46 IMPRESSION: No acute intracranial hemorrhage. Head MRI 06/14/18 00:00 IMPRESSION: 1. Chronic atrophy, small vessel disease as above. 2. Fairly extensive paranasal sinus disease. This looks relatively chronic. 3. No recent CVA. No acute intracranial abnormality. EVIDENCE OF ACUTE STROKE: NO. Assessment & Plan - Diagnosis (1) Altered mental status Qualifiers: Altered mental status type: coma Coma depth: [place] coma 9-12 Coma timing: in the field (EMT or ambulance) Qualified Code(s): R40.2421 - [place] coma scale score 9-12, in the field [EMT or ambulance] Is this a current diagnosis for this admission?: Yes Plan: Resolved. Likely postictal related. (2) Seizure Is this a current diagnosis for this admission?: Yes Plan: Possibly alcohol withdrawal seizure as patient did report that he drinks 3 bottles of beer/day and a quart of liquor 3 times a week. (3) Elevated troponin Is this a current diagnosis for this admission?: Yes Plan: EKGs has been unremarkable. Troponin peaked at 0.066. Patient went for stress testing on 06/18/18. Discussed with cardiology. Optimized medical therapy for CA D. Cardiology following. - Time Time Spent with patient: 15-24 minutes
[2018-06-22] MEDS: ATORVASTATIN CALCIUM 40 MG TABLET PO SCH (21:37)
[2018-06-22] MEDS: ACETAMINOPHEN 325 MG TABLET PO PRN (21:37)
[2018-06-23 08:21] LABS: ANION GAP 6 (5-19); BLOOD UREA NITROGEN 29 mg/dL (7-20); CALCIUM 9.3 mg/dL (8.4-10.2); CARBON DIOXIDE 27 mmol/L (22-30); CHLORIDE 107 mmol/L (98-107); GLUCOSE 127 mg/dL (75-110); POTASSIUM 4.3 mmol/L (3.6-5.0); SODIUM 140.2 mmol/L (137-145)
[2018-06-23] MEDS: METFORMIN HCL 500 MG TABLET PO SCH ×2 (08:23→17:04)
[2018-06-23] MEDS: BUDESONIDE NEB 0.5 MG/2 ML AMPUL NEB SCH (08:47)
[2018-06-23] MEDS: GLIPIZIDE 5 MG TABLET PO SCH (09:10)
[2018-06-23] MEDS: TAMSULOSIN HCL 0.4 MG CAP.SR.24H PO SCH (09:10)
[2018-06-23] MEDS: DOCUSATE SODIUM 100 MG CAPSULE PO SCH (09:10)
[2018-06-23] MEDS: ASPIRIN 81 MG TABLET, CHEWABLE PO SCH (09:10)
[2018-06-23] MEDS: THIAMINE HCL 100 MG TABLET PO SCH (09:10)
[2018-06-23] MEDS: METOPROLOL SUCCINATE 50 MG TAB.SR.24H PO SCH (09:10)
[2018-06-23] MEDS: FOLIC ACID 1 MG TABLET PO SCH (09:11)
[2018-06-23] MEDS: LISINOPRIL 10 MG TABLET PO SCH (09:11)
[2018-06-23] MEDS: AMLODIPINE BESYLATE 10 MG TABLET PO SCH (09:11)
[2018-06-23] MEDS: ISOSORBIDE MONONITRATE 30 MG TAB.ER.24H PO SCH (09:11)
[2018-06-23] MEDS: LEVETIRACETAM 500 MG TABLET PO SCH (09:12)
[2018-06-23] MEDS: KETOROLAC TROMETHAMINE INJ/PF 30 MG/1 ML SDV IV PRN (09:12)
--- NOTE | 2018-06-23 10:12 | PDOC TRANSFER SUMMARY ---
General Admission Date/PCP: 06/13/18 04:08 Resuscitation Status: Full Code - Transfer Diagnosis (1) Altered mental status Is this a current diagnosis for this admission?: Yes (2) Seizure Is this a current diagnosis for this admission?: Yes (3) Elevated troponin Is this a current diagnosis for this admission?: Yes (4) Diabetes mellitus Is this a current diagnosis for this admission?: Yes (5) Coronary artery disease Is this a current diagnosis for this admission?: Yes - Transfer Medications Home Medications: Albuterol Sulfate [Proair HFA Inhalation Aerosol 8.5 gm MDI] 2 puff IH Q4HP PRN 06/13/18 Amlodipine Besylate [Norvasc 5 mg Tablet] 10 mg PO DAILY 06/13/18 Glipizide [Glucotrol 5 mg Tablet] 2.5 mg PO BID 06/13/18 Umeclidinium Brm/Vilanterol Tr [Anoro Ellipta 62.5-25 Mcg INH] 1 puff IH DAILY 06/13/18 Transfer Medications: Current Medications Acetaminophen (Tylenol 650 Mg Supp) 650 mg OH Q4HP PRN PRN Reason: For headache, pain or fever Stop: 07/13/18 04:28 Acetaminophen (Tylenol 325 Mg Tablet) 650 mg PO Q4HP PRN PRN Reason: For headache, pain or fever Stop: 07/13/18 04:28 Last Admin: 06/22/18 21:37 Dose: 650 mg Documented by: Al Hydrox/Mg Hydrox/Simethicone (Maalox Plus Susp 30 Udcup) 30 ml PO Q6HP PRN PRN Reason: HEARTBURN Stop: 07/13/18 04:07 Albuterol (Ventolin 0.083% Neb 2.5 Mg/3 Ml Ampul) 2.5 mg NEB RTQ1HP PRN PRN Reason: SHORTNESS OF BREATH Stop: 07/13/18 04:28 Last Admin: 06/20/18 19:56 Dose: 2.5 mg Documented by: Albuterol (Proair Hfa Inhalation Aerosol 8.5 Gm Mdi) 2 puff IH Q4HP PRN PRN Reason: SHORTNESS OF BREATH Stop: 07/14/18 11:25 Amlodipine Besylate (Norvasc 10 Mg Tablet) 10 mg PO DAILY [facility] Stop: 07/15/18 09:59 Last Admin: 06/23/18 09:11 Dose: 10 mg Documented by: Aspirin (Aspirin 81 Mg Chewable Tablet) 81 mg PO DAILY [facility] Stop: 07/15/18 09:59 Last Admin: 06/23/18 09:10 Dose: 81 mg Documented by: Atorvastatin Calcium (Lipitor 40 Mg Tablet) 40 mg PO QHS [facility] Stop: 07/19/18 21:59 Last Admin: 06/22/18 21:37 Dose: 40 mg Documented by: Budesonide (Pulmicort Neb 0.5 Mg/2 Ml Ampul) 0.5 mg NEB RTQ12 [facility] Stop: 07/13/18 07:59 Last Admin: 06/23/18 08:47 Dose: 0.5 mg Documented by: Dextrose (Dextrose Inj 50% Syringe (25 Gm/50 Ml)) 12.5 gm IV PRN PRN; Protocol PRN Reason: FOR BG 50-69 IN ALERT PATIENT Stop: 07/13/18 04:19 Dextrose (Dextrose Inj 50% Syringe (25 Gm/50 Ml)) 25 gm IV PRN PRN; Protocol PRN Reason: PER PROTOCOL Stop: 07/13/18 04:19 Docusate Sodium (Colace 100 Mg Capsule) 100 mg PO BID [facility] Stop: 07/13/18 09:59 Last Admin: 06/23/18 09:10 Dose: 100 mg Documented by: Folic Acid (Folvite 1 Mg Tablet) 1 mg PO DAILY [facility] Stop: 07/21/18 10:59 Last Admin: 06/23/18 09:11 Dose: 1 mg Documented by: Glipizide (Glucotrol 5 Mg Tablet) 2.5 mg PO BID [facility] Stop: 07/14/18 17:59 Last Admin: 06/23/18 09:10 Dose: 2.5 mg Documented by: Glucagon (Glucagen Inj 1 Mg Vial) 1 mg IM PRN PRN; Protocol PRN Reason: Evaluate for BG < 70 Stop: 07/13/18 04:19 Glucose (Glutose 40% Gel 15 Gm Tube) 15 gm PO PRN PRN; Protocol PRN Reason: FOR BG 50-69 IN ALERT PATIENT Stop: 07/13/18 04:19 Glucose (Glutose 40% Gel 15 Gm Tube) 30 gm PO PRN PRN; Protocol PRN Reason: FOR BG < 50 IN ALERT PATIENT Stop: 07/13/18 04:19 Ceftriaxone Sodium 2,000 mg/ (Dextrose) 100 mls @ 200 mls/hr IV NOON [facility] Stop: 06/23/18 11:59 Last Infusion: 06/22/18 12:26 Dose: Infused Documented by: Influenza Virus Vaccine Quadrival (Fluarix Adlt Quad Vac 0.5 Ml Syr) 0.5 ml IM .DISCHARGE PRN PRN Reason: THIS MED IS NOT "PRN" Stop: 07/13/18 15:58 Insulin Human Lispro (Humalog Insulin 100 Unit/1 Ml 3 Ml Vial) 0 - 12 unit SUBCUT ACHSP PRN; Protocol PRN Reason: PER PROTOCOL Stop: 07/13/18 04:19 Last Admin: 06/22/18 11:19 Dose: 2 unit Documented by: Isosorbide Mononitrate (Imdur 30 Mg Tablet.Er) 60 mg PO DAILY [facility] Stop: 07/21/18 09:59 Last Admin: 06/23/18 09:11 Dose: 60 mg Documented by: Ketorolac Tromethamine (Toradol Inj/Pf 30 Mg/1 Ml Sdv) 30 mg IV Q6HP PRN PRN Reason: FOR PAIN Stop: 06/25/18 21:46 Last Admin: 06/23/18 09:12 Dose: 30 mg Documented by: Levetiracetam (Keppra 500 Mg Tablet) 500 mg PO Q12 [facility] Stop: 07/13/18 09:59 Last Admin: 06/23/18 09:12 Dose: 500 mg Documented by: Lisinopril (Prinivil 10 Mg Tablet) 10 mg PO DAILY [facility] Stop: 07/20/18 09:59 Last Admin: 06/23/18 09:11 Dose: 10 mg Documented by: Magnesium Hydroxide (Milk Of Magnesia 30 Ml Udcup) 30 ml PO HSP PRN PRN Reason: FOR CONSTIPATION Stop: 07/13/18 04:07 Metformin HCl (Glucophage 500 Mg Tablet) 500 mg PO BIDACBS [facility] Stop: 07/14/18 15:59 Last Admin: 06/23/18 08:23 Dose: 500 mg Documented by: Metoprolol Succinate (Toprol Xl 50 Mg Tab.Sr) 100 mg PO DAILY [facility] Stop: 07/13/18 09:59 Last Admin: 06/23/18 09:10 Dose: 100 mg Documented by: Nitroglycerin (Nitrostat 0.4 Mg (1/150 Gr) Tabs 25/Bottle) 1 tab SL Q5MP PRN PRN Reason: FOR CHEST PAIN Stop: 07/20/18 11:09 Last Admin: 06/20/18 11:10 Dose: 1 tab Documented by: Ondansetron HCl (Zofran Inj/Pf 4 Mg/2 Ml Sdv) 4 mg IV Q4HP PRN PRN Reason: FOR NAUSEA/VOMITING Stop: 07/13/18 04:07 Ondansetron HCl (Zofran Odt 4 Mg Tablet) 4 mg PO Q4HP PRN PRN Reason: FOR NAUSEA/VOMITING Stop: 07/13/18 04:07 Patient Own Medication (Umeclidinium Brm/Vilanterol Tr [Anoro Ellipta 62.5-25 Mcg Inh]) 1 puff IH .DAILY [facility] Stop: 07/15/18 09:59 Sodium Chloride (Saline Flush 2.5 Ml Monoject Prefil Syrin) 2.5 ml IV Q8 [facility] Stop: 07/13/18 05:59 Last Admin: 06/23/18 05:39 Dose: Not Given Documented by: Tamsulosin HCl (Flomax 0.4 Mg Cap.Sr) 0.4 mg PO DAILY [facility] Stop: 07/13/18 09:59 Last Admin: 06/23/18 09:10 Dose: 0.4 mg Documented by: Thiamine HCl (Thiamine 100 Mg Tablet) 100 mg PO DAILY [facility] Stop: 07/22/18 09:59 Last Admin: 06/23/18 09:10 Dose: 100 mg Documented by: - Allergies Allergies/Adverse Reactions: Sulfa (Sulfonamide Antibiotics) Allergy (Verified 05/28/16 15:48) Hospital Course Hospital Course: H&P: RITU ALLEN is a 63 year old male who presented to the emergency room via EMS. His family members relate that they had picked the patient up at his home and brought him to their home to facilitate their ability to take him to a pulmonology appointment scheduled later today. However they found him slumped forward while sitting at the table where he had apparently been eating. His head was down on the table and was also noted to be shaking and his right arm was extended out over the table and it was jerking. The patient was not responsive to their attempts to arouse him or assist him and this created great concern for them for which they called the EMS. Since the time of his unusual behavior he has not been responsive though he can be aroused minimally he is unable to communicate other than for the most brief of questions as he returns to his somnolent stupor before a question can be reasonably posed. He does say no when asked if he has any pain however this is the extent of information that was able to be gleaned from the patient himself. The family states that he has been found by his homemaker sitting in his recliner having lost control of his bladder or bowels on occasions. Generally he is good about getting up and going to the bathroom and his homemaker found this to be somewhat puzzling but had also noted that he was sleeping very soundly when she would find him in such a condition and she would not be able to wake him to get him to clean himself up. The family indicates that the patient has no history of seizure disorder to the best of their knowledge. Course: This is a 63 yr old male with a PMH of pulmonary embolism in the past now off anticoagulation, hypertension and tbb-mshpksw-okohgbyky diabetes mellitus who was initially admitted due to acute encephalopathy deemed to be secondary to seizure. In the emergency room the patient was found to be arousable but stuporous on exam. His laboratory workup was essentially unremarkable with the exception of a mildly elevated lactic acid level and hyperglycemia in the 200s. His brain CT scan was unremarkable for any acute process. Because of these findings it was felt that the patient was most likely post ictal and was admitted for further evaluation and initiation of anticonvulsant therapy. He was started on IV fluids and Keppra. He was also started in Iv fluids, thiamine and folate supplements. He did return to his baseline mentation. He did admit to alcohol use and that he drinking 3 bottles of beer a day and drinks a quart of liquor 3 times a week and stopped drinking 2 days prior to admission. His seizure may be alcohol withdrawal related. He did have mild chest pain and troponin was mildly elevated at 0.06 (peak). Cardiology was consulted and he underwent stress testing which showed a tiny defect on the LV. Cardio recommendation was aggressive medical therapy. He was started on beta ayla, ACEi, Imdur and continued on aspirin. He does appear to have very mild cognitive impairment which appears to have been going on for several months which could be related to his chronic alcoholism. He has been advised to completely stop drinking if he gets discharged from the rehab later to which he say "I will try my best". He did have an MRI of the brain which only showed chronic atrophic changes. He also had LP on presentation and CSF fluid analysis was unremarkable. His A1c also came back at 9.1. He is on low dose metformin and glipizide at home. Metformin will be increased to 1000 mg bid from 500 mg bid. He will also continue glipizide. Patient continued to improve clinically. He was evaluated by PT and recommendation was inpatient rehab. He will be going to [facility] and rehab. He did request his sibling (brother and sister) updated about findings and plan of care. This provider talked with both sibling in length over the phone. Physical Exam Vital Signs: Temp Pulse Resp BP Pulse Ox 97.9 F 65 12 149/84 H 97 06/23/18 07:07 06/23/18 08:47 06/23/18 08:47 06/23/18 07:07 06/23/18 08:47 Intake & Output 06/22/18 06/23/18 06/24/18 06:59 06:59 06:59 Intake Total 1660 1650 Output Total 2400 1980 Balance -740 -330 Weight 217 lb 2.485 oz 220 lb 0.341 oz General appearance: PRESENT: no acute distress, well-developed, well-nourished Head exam: PRESENT: atraumatic, normocephalic Eye exam: PRESENT: conjunctiva pink, EOMI, PERRLA. ABSENT: scleral icterus Ear exam: PRESENT: normal external ear exam Neck exam: ABSENT: carotid bruit, JVD, lymphadenopathy, thyromegaly Respiratory exam: PRESENT: clear to auscultation rubin. ABSENT: rales, rhonchi, wheezes Cardiovascular exam: PRESENT: RRR. ABSENT: diastolic murmur, rubs, systolic murmur Pulses: PRESENT: normal dorsalis pedis pul GI/Abdominal exam: PRESENT: normal bowel sounds, soft. ABSENT: distended, guarding, mass, organolmegaly, rebound, tenderness Rectal exam: PRESENT: deferred Neurological exam: PRESENT: alert, awake, oriented to person, oriented to place, oriented to time, CN II-XII grossly intact Results Laboratory Results: 06/17/18 07:19 06/23/18 07:55 06/23/18 07:55 Sodium 140.2 Potassium 4.3 Chloride 107 Carbon Dioxide 27 Anion Gap 6 BUN 29 H Creatinine 0.81 Est GFR ( Amer) > 60 Est GFR (Non-Af Amer) > 60 Glucose 127 H Calcium 9.3 06/12/18 06/12/18 06/12/18 19:00 19:00 19:00 Creatine Kinase 37 L CK-MB (CK-2) 0.80 Troponin I 0.062 NT-Pro-B Natriuret Pep 89 06/13/18 06/13/18 06/13/18 00:05 06:33 06:33 Creatine Kinase 28 L CK-MB (CK-2) 0.53 Troponin I 0.057 0.056 NT-Pro-B Natriuret Pep 80 06/13/18 06/13/18 06/13/18 15:28 15:28 21:30 Creatine Kinase 27 L 21 L CK-MB (CK-2) 0.50 Troponin I 0.057 NT-Pro-B Natriuret Pep 06/13/18 06/17/18 21:30 13:42 Creatine Kinase CK-MB (CK-2) 0.32 Troponin I 0.055 0.066 NT-Pro-B Natriuret Pep Impressions: Chest X-Ray 06/12/18 19:41 IMPRESSION: No acute disease. Head CT 06/12/18 20:46 IMPRESSION: No acute intracranial hemorrhage. Head MRI 06/14/18 00:00 IMPRESSION: 1. Chronic atrophy, small vessel disease as above. 2. Fairly extensive paranasal sinus disease. This looks relatively chronic. 3. No recent CVA. No acute intracranial abnormality. EVIDENCE OF ACUTE STROKE: NO.
[2018-06-23] MEDS: INSULIN LISPRO 100 UNIT/ML 3 ML VIAL SUBCUT PRN (11:02)
[2018-06-23 15:59] VITALS: BP 135/70
== END 2018-06-23 17:08 | DRG 897 ==
LOC: ER 19:36 → EH 06-13 03:55 → OBSVTOIN 06-13 04:08 → 5 06-13 09:52
PROVIDERS: ADMIT Emergency Medicine; ATTEND Emergency Medicine
PROC: 3E0F73Z Introduction of Anti-inflammatory into Respiratory Tract, Via Natural or Artificial Opening (ICD-10-PCS; 2018-06-13)
PROC: 009U3ZX Drainage of Spinal Canal, Percutaneous Approach, Diagnostic (ICD-10-PCS; principal; 2018-06-16)
PROC: 3E02340 Introduction of Influenza Vaccine into Muscle, Percutaneous Approach (ICD-10-PCS; 2018-06-23)
DX: F10.239 Alcohol dependence with withdrawal, unspecified (principal); E11.9 Type 2 diabetes mellitus without complications; I25.10 Atherosclerotic heart disease of native coronary artery without angina pectoris; R56.9 Unspecified convulsions; R74.8 Abnormal levels of other serum enzymes; I10 Essential (primary) hypertension; R07.89 Other chest pain; E78.00 Pure hypercholesterolemia, unspecified; J44.9 Chronic obstructive pulmonary disease, unspecified; F41.9 Anxiety disorder, unspecified; F32.9 Major depressive disorder, single episode, unspecified; R40.2421 Glasgow coma scale score 9-12, in the field [EMT or ambulance]; E66.9 Obesity, unspecified; Z68.30 Body mass index [BMI] 30.0-30.9, adult; Y90.0 Blood alcohol level of less than 20 mg/100 ml; F17.210 Nicotine dependence, cigarettes, uncomplicated; Z23 Encounter for immunization; Z79.899 Other long term (current) drug therapy; Z88.2 Allergy status to sulfonamides; Z86.711 Personal history of pulmonary embolism; Z79.01 Long term (current) use of anticoagulants; Z79.84 Long term (current) use of oral hypoglycemic drugs; Z82.49 Family history of ischemic heart disease and other diseases of the circulatory system
CPT/HCPCS: 36415; 70450; 70553; 71045; 78452; 80048; 80053; 80061; 80307; 81001; 82550; 82553; 82803; 82945; 82962; 83036; 83605; 83735; 83880; 84100; 84157; 84439; 84443; 84481; 84484; 85025; 85027; 86592; 87040; 87070; 87186; 87205; 87252; 89050; 90471; 90686; 93005; 93010; 93017; 93306; 94640; 95819; 96360; 99285; A9500; A9576; G0008; G8978-GP; G8979-GP; G8987-GO; G8988-GO; J0696; J1650; J1815; J1885; J2785; J3411; J3480; J3490; J7030; J7050; Q9969; S0164

== ENCOUNTER → 2018-11-26 | Outpatient (CLI) | payer MEDICARE, MEDICAID ==
--- NOTE | 2018-11-26 12:37 | RADIOLOGY REPORT (SQ) ---
EXAM DESCRIPTION: LUMBAR SPINE COMPLETE COMPLETED DATE/TIME: 11/26/2018 10:12 am REASON FOR STUDY: LOW BACK PAIN M54.5 LOW BACK PAIN COMPARISON: None. NUMBER OF VIEWS: Five views including obliques. TECHNIQUE: AP, lateral, oblique, and sacral radiographic images acquired of the lumbar spine. LIMITATIONS: None. FINDINGS: MINERALIZATION: Normal. SEGMENTATION: Normal. No transitional anatomy. ALIGNMENT: Mild scoliosis. VERTEBRAE: Maintained height. No fracture or worrisome bone lesion. DISCS: There is mild disc narrowing at multiple levels. Prominent marginal osteophytes are present. POSTERIOR ELEMENTS: Hypertrophic facet changes from L3-S1. HARDWARE: None in the spine. PARASPINAL SOFT TISSUES: Normal. PELVIS: Intact as visualized. No fractures or worrisome bone lesions. SI joints intact. OTHER: No other significant finding. IMPRESSION: Mild scoliosis. Multilevel degenerative disc disease and spondylosis. Facet arthropath y. TECHNICAL DOCUMENTATION: JOB ID: [id number] [employer]- All Rights Reserved Reading location - IP/workstation name: [email or web address]
== END ==
LOC: OD 09:30
PROVIDERS: ATTEND Physician Assistant
DX: M54.5 Low back pain (principal); M51.36 Other intervertebral disc degeneration, lumbar region; M47.896 Other spondylosis, lumbar region; M41.86 Other forms of scoliosis, lumbar region
CPT/HCPCS: 72110

== ENCOUNTER → 2018-12-11 | Outpatient (CLI) | payer MEDICARE, MEDICAID ==
--- NOTE | 2018-12-11 14:23 | RADIOLOGY REPORT (SQ) ---
EXAM DESCRIPTION: CHEST PA/LATERAL COMPLETED DATE/TIME: 12/11/2018 1:20 pm REASON FOR STUDY: WHEEZING COMPARISON: 06/12/2018 EXAM PARAMETERS: NUMBER OF VIEWS: two views TECHNIQUE: Digital Frontal and Lateral radiographic views of the chest acquired. RADIATION DOSE: NA LIMITATIONS: none FINDINGS: LUNGS AND PLEURA: A 10 mm right pulmonary nodule is once again seen. This appears to be c alcified. A much smaller calcified nodules seen in the left lung laterally. MEDIASTINUM AND HILAR STRUCTURES: No masses or contour abnormalities. HEART AND VASCULAR STRUCTURES: Heart normal size. No evidence for failure. BONES: No acute findings. HARDWARE: None in the chest. OTHER: No other significant finding. IMPRESSION: Stable 10 mm calcified right pulmonary nodule. No acute cardiopulmonary findings. TECHNICAL DOCUMENTATION: JOB ID: [id number] [employer]- All Rights Reserved Reading location - IP/workstation name: [email or web address]
== END ==
LOC: OD 13:00
PROVIDERS: ATTEND Physician Assistant
DX: R91.1 Solitary pulmonary nodule (principal); R06.2 Wheezing
CPT/HCPCS: 71046